=== PATIENT | male | born 1960 | race Caucasian/White ===

== ENCOUNTER 2017-08-01 09:49 | Inpatient (IN) | payer OTHER ==
[~2017-08-01] VITALS: Ht 172.7 cm; Wt 70.3 kg
[2017-08-01] MEDS ORDERED: DILTIAZEM HCL 5 MG/ML 5 ML VIAL IV STA (10:18)
[2017-08-01] MEDS ORDERED: SODIUM CHLORIDE 0.9% 500ML 500 ML IV STA (10:18)
--- NOTE | 2017-08-01 10:18 | EMERGENCY ROOM VISIT NOTE ---
History Report prepared by Destiny: Nicolas Armstrong Under the Supervision of: Dr. Janneth Jones M.D. First contact with patient: 10:05 Chief Complaint: SHORTNESS OF BREATH Stated Complaint: SOB, CHEST PAIN History of Present Illness The patient is a 56 year old male with atypical cystic fibrosis who presents to the Emergency Room with complaints of worsening respiratory problems over the past few days. Per the patient's significant other, the patient had influenza a month ago, then had sinusitis, and wound up with pneumonia. The patient was sent to the [facility] at this time. He has then started to get sick again the past few days, and per the patient's significant other who is an EMT, the patient seems to be getting the pneumonia again with shortness of breath and some chest pain. The patient was seen at [facility] earlier today, and was then told to come here. Per the patient's significant other, the patient has had lung sounds in the lower left lobe. The patient notes no history of atrial fibrillation. He was recently on prednisone and azithromycin. Source of History: patient, spouse/significant other Onset: The past few days Position: other (global - respiratory problems) Symptom Intensity: sent here from [facility] Quality: other (recently had pneumonia) Timing: worsening Associated Symptoms: + chest pain, + SOB Note: No other associated symptoms noted. Review of Systems See HPI for pertinent positives & negatives. A total of 10 systems reviewed and were otherwise negative. Past Medical & Surgical Medical Problems: (1) Asthma (2) Cystic fibrosis (3) Kidney disease (4) PNA (pneumonia) Family History Cancer Diabetes mellitus Gallbladder disease Heart disease Lung disease Social History Smoking Status: Current Every Day Smoker Alcohol Use: none Marital Status: in relationship Housing Status: lives with significant other Occupation Status: employed Current/Historical Medications Scheduled Buprenorphine Hcl-Naloxone Hcl (Suboxone 8-2 Mg), 8 MG TL BID Calcium (Calcium), 1 TAB PO DAILY Carisoprodol (Soma), 350 MG PO TID Cholecalciferol (Vitamin D3), 1 CAP PO DAILY Folic Acid (Folvite), 1 MG PO DAILY Omeprazole Magnesium (Prilosec Otc), 20 MG PO DAILY Potassium (Potassium), 1 TAB PO DAILY Allergies Coded Allergies: No Known Allergies (Unverified , 08/01/17) Physical Exam Vital Signs Date Time Temp Pulse Resp B/P (MAP) Pulse Ox O2 Delivery O2 Flow Rate FiO2 08/01/17 11:57 107 18 134/98 95 Room Air 08/01/17 11:29 95 Nasal Cannula 3.0 08/01/17 11:05 75 20 133/87 95 Nasal Cannula 3.0 08/01/17 10:25 91 Room Air 08/01/17 10:15 153 08/01/17 09:51 36.9 130 28 147/110 98 Room Air Physical Exam Vital signs reviewed. General: Well-appearing 56 year old male, in no significant distress. HEENT: No scleral icterus, PERRLA, neck supple. Atraumatic. Cardiovascular: Tachycardic and irregular, no extra sounds. Pulmonary: Fine crackles throughout all lung ramirez. Normal WOB Abdomen: Soft, nontender, nondistended, positive bowel sounds. Musculoskeletal: Atraumatic, no peripheral edema. Neurologic: Patient awake alert and oriented x 3, full strength in all 4 extremities. Cranial nerves 2 through 12 grossly intact. Skin: Warm, dry, no rash Medical Decision & Procedures ER Provider Diagnostic Interpretation: X-ray results as stated below per interpretation by me and the radiologist: CHEST ONE VIEW PORTABLE CLINICAL HISTORY: atrial fib dyspnea COMPARISON STUDY: None. FINDINGS: Mild cardia megaly. Moderate myocardial calcification. Components of congestive failure versus pulmonary edema. Diaphragms smooth. Slight blunting of the lateral calcific angles. IMPRESSION: Findings consistent with interstitial congestive failure versus early pulmonary edema. The above report was generated using voice recognition software. It may contain grammatical, syntax or spelling errors. Electronically signed by: Andrei Locke M.D. 08/01/2017 10:45 AM Dictated Date/Time: 08/01/2017 10:39 AM Laboratory Results Test 08/01/17 10:25 08/01/17 10:30 08/01/17 10:35 08/01/17 11:00 Immature Granulocyte % (Auto) 0.1 % White Blood Count 8.80 K/uL (4.8-10.8) Red Blood Count 4.04 M/uL (4.7-6.1) Hemoglobin 11.9 g/dL (14.0-18.0) Hematocrit 35.1 % (42-52) Mean Corpuscular Volume 86.9 fL (80-100) Mean Corpuscular Hemoglobin 29.5 pg (25-34) Mean Corpuscular Hemoglobin Concent 33.9 g/dl (32-36) Platelet Count 165 K/uL (130-400) Mean Platelet Volume 11.2 fL (7.4-10.4) Neutrophils (%) (Auto) 79.5 % Lymphocytes (%) (Auto) 11.8 % Monocytes (%) (Auto) 7.6 % Eosinophils (%) (Auto) 0.8 % Basophils (%) (Auto) 0.2 % Neutrophils # (Auto) 6.99 K/uL (1.4-6.5) Lymphocytes # (Auto) 1.04 K/uL (1.2-3.4) Monocytes # (Auto) 0.67 K/uL (0.11-0.59) Eosinophils # (Auto) 0.07 K/uL (0-0.5) Basophils # (Auto) 0.02 K/uL (0-0.2) Immature Granulocyte # (Auto) 0.01 K/uL (0.00-0.02) Estimated Average Glucose 177 mg/dl Hemoglobin A1c 7.8 % (4.5-5.6) Total Bilirubin 0.7 mg/dl (0.2-1) Direct Bilirubin 0.3 mg/dl (0-0.2) Aspartate Amino Transf (AST/SGOT) 29 U/L (15-37) Alanine Aminotransferase (ALT/SGPT) 32 U/L (12-78) Alkaline Phosphatase 203 U/L (45-117) Total Creatine Kinase 71 U/L (39-308) Creatine Kinase MB 4.1 ng/ml (0.5-3.6) Creatine Kinase MB Ratio 5.8 (0-3.0) Total Protein 7.1 gm/dl (6.4-8.2) Albumin 2.9 gm/dl (3.4-5.0) Thyroid Stimulating Hormone (TSH) 1.620 uIu/ml (0.300-4.500) Bedside Troponin I 0.030 ng/ml (0-0.045) Bedside Lactic Acid Venous 1.02 mmol/L (0.90-1.70) Urine Color YELLOW Urine Appearance CLEAR (CLEAR) Urine pH 5.0 (4.5-7.5) Urine Specific Wolbach 1.019 (1.000-1.030) Urine Protein NEG (NEG) Urine Glucose (UA) NEG (NEG) Urine Ketones NEG (NEG) Urine Occult Blood NEG (NEG) Urine Nitrite NEG (NEG) Urine Bilirubin NEG (NEG) Urine Urobilinogen NEG (NEG) Urine Leukocyte Esterase NEG (NEG) Laboratory results per my review. Medications Administered Medications (Trade) Dose Ordered Sig/Reny Route Start Time Stop Time Status Last Admin Dose Admin Sodium Chloride 500 ml @ 999 mls/hr Q31M STAT IV 08/01/17 10:18 08/01/17 10:54 DC 08/01/17 10:28 999 MLS/HR Diltiazem HCl (Cardizem Inj) 20 mg NOW STAT IV 08/01/17 10:18 08/01/17 10:23 DC 08/01/17 10:28 20 MG Furosemide (Lasix Inj) 40 mg NOW STAT IV 08/01/17 10:53 08/01/17 10:54 DC 08/01/17 11:05 40 MG Diltiazem HCl 125 mg/Dextrose 125 ml @ 0 mls/hr Q0M PRN IV 08/01/17 12:15 08/31/17 12:14 08/02/17 09:01 5 MLS/HR Diltiazem HCl (Cardizem Inj) 10 mg TODAY@1230 IV 08/01/17 12:30 08/01/17 12:31 DC 08/01/17 12:28 10 MG ECG Indication: SOB/dyspnea Rate (beats per minute): 70 Rhythm: atrial flutter (with variable block) Findings: no acute ischemic change, no ectopy ED Course 1010: Past medical records reviewed. The patient was evaluated in room B11B. A complete history and physical examination was performed. 1018: Ordered Cardizem Inj 20 mg IV, NSS 500 ml @ 999 mls/hr IV. 1053: Ordered Lasix Inj 40 mg IV. 1154: I reviewed the patient's case with Dr. Hunt - [facility]. He will evaluate the patient for further management. 1156: Upon reevaluation, the patient is resting comfortably. I discussed laboratory and radiographic results with him and his significant other. They verbalized agreement of the treatment plan. The patient will be evaluated for further management and care. Medical Decision Differential diagnosis: Etiologies such as cardiac arrhythmia, infections, reactive airway disease, pneumonia, pneumothorax, COPD, CHF, cardiac ischemia, pulmonary embolism, musculoskeletal, gastrointestinal, as well as others were entertained. This patient was evaluated and appeared to be in no significant distress. IV access was obtained and laboratory work was drawn. The patient was placed on parts counter representative and found to be in a rapid atrial fib/flutter. Patient was given 20 mg of IV Cardizem after a bolus of normal saline solution. Chest x- ray then reveals a pulmonary vascular congestion. Patient was administered Lasix 40 mg IV. The Cardizem did result in good rate control however he remained in an atrial flutter. Patient's case was discussed with the hospitalist service. They will evaluate the patient for admission and further management. Medication Reconcilliation Current Medication List: was personally reviewed by me Blood Pressure Screening Patient's blood pressure: Elevated blood pressure Referred to auto body [facility]. Consults Time Called: 1150 Consulting Physician: Dr. Marilee FREY auto body man Returned Call: 1154 I reviewed the patient's case with Dr. Marilee FERY auto body man. He will evaluate the patient for further management. Impression Primary Impression: Atrial flutter with rapid ventricular response Additional Impression: Pulmonary vascular congestion Scribe Attestation The scribe's documentation has been prepared under my direction and personally reviewed by me in its entirety. I confirm that the note above accurately reflects all work, treatment, procedures, and medical decision making performed by me. Departure Information Dispostion Being Evaluated By Hospitalist Referrals No Doctor, Assigned (PCP) Patient Instructions My [facility] Problem Qualifiers
[2017-08-01] MEDS ORDERED: CHOL1000 PO (10:26)
[2017-08-01] MEDS ORDERED: POTA99TA PO (10:26)
[2017-08-01] MEDS ORDERED: OMEP20TA14 PO (10:26)
[2017-08-01] MEDS ORDERED: CARI350T28 PO (10:26)
[2017-08-01] MEDS ORDERED: FOLI1TAB8 PO (10:26)
[2017-08-01] MEDS ORDERED: CALC500T83 PO (10:26)
[2017-08-01 10:46] LABS: BASO % 0.2 %; BASO ABS # 0.02 K/uL (0-0.2); EOS % 0.8 %; EOS ABS # 0.07 K/uL (0-0.5); HEMATOCRIT 35.1 % (42-52); HEMOGLOBIN 11.9 g/dL (14.0-18.0); IG# 0.01 K/uL (0.00-0.02); LYMPH % 11.8 %; LYMPH ABS # 1.04 K/uL (1.2-3.4); MEAN CELL VOLUME 86.9 fL (80-100); MEAN CORPUSCULAR HEMOGLOBIN 29.5 pg (25-34); MEAN CORPUSCULAR HGB CONC 33.9 g/dl (32-36); MEAN PLATELET VOLUME 11.2 fL (7.4-10.4); MONO % 7.6 %; MONO ABS # 0.67 K/uL (0.11-0.59); NEUT % 79.5 %; NEUT ABS # 6.99 K/uL (1.4-6.5); PLATELET COUNT 165 K/uL (130-400); RED CELL DISTRIBUTION WIDTH CV 13.3 % (11.5-14.5); RED CELL DISTRIBUTION WIDTH SD 42.7 fL (36.4-46.3)
--- NOTE | 2017-08-01 10:46 | DIAGNOSTIC IMAGING REPORT ---
CHEST ONE VIEW PORTABLE CLINICAL HISTORY: atrial fib dyspnea COMPARISON STUDY: None. FINDINGS: Mild cardia megaly. Moderate myocardial calcification. Components of congestive failure versus pulmonary edema. Diaphragms smooth. Slight blunting of the lateral calcific angles. IMPRESSION: Findings consistent with interstitial congestive failure versus early pulmonary edema. The above report was generated using voice recognition software. It may contain grammatical, syntax or spelling errors. Electronically signed by: Andrei Locke M.D. 08/01/2017 10:45 AM Dictated Date/Time: 08/01/2017 10:39 AM
[2017-08-01] MEDS ORDERED: FUROSEMIDE 40 MG/4 ML VIAL IV STA (10:53)
[2017-08-01 11:04] LABS: ALBUMIN 2.9 gm/dl (3.4-5.0); CALCIUM 8.9 mg/dl (8.5-10.1); CREATININE 0.72 mg/dl (0.60-1.40); POTASSIUM 4.2 mmol/L (3.5-5.1)
[2017-08-01 11:09] LABS: CKMB 4.1 ng/ml (0.5-3.6); TOTAL PROTEIN 7.1 gm/dl (6.4-8.2)
[2017-08-01] MEDS ORDERED: BUPR1SUB23 TL (11:20)
[2017-08-01 11:29] VITALS: O2SAT 95; BMI 24.2
[2017-08-01] MEDS ORDERED: DILTIAZEM BOLUS / DRIP IV STA (12:01)
--- NOTE | 2017-08-01 12:21 | History and Physical ---
History & Physical Date & Time of Service: Aug 01, 2017 at 11:58 Chief Complaint: Sob, Chest Pain Primary Care Physician: No Doctor, Assigned History of Present Illness Source: patient 56yo male with history of numerous episodes of pancreatitis - due to cystic fibrosis? - who presents with worsening dyspnea starting Tuesday. He has been sick for about 1 month - initially with influenza and sinusitis, then about 2 weeks ago was diagnosed at [facility] with pneumonia. He was treated with prednisone and zithromax. His significant other is an EMT and she listed to his heart/lungs over the weekend and noted his pulse was fast. His dyspnea and cough along with sputum worsened this weekend. He has had fever over the last few days - highest about 101. Treated with tylenol/motrin. Today he decided to come to [facility] due to the severity of his shortness of breath and weakness. His daughter from cystic fibrosis and he had DNA testing for such and was positive for the CF gene. However, he had normal development as a child and normal lung function as well. He has had very few episodes of bronchitis over the years. No prior h/o a. fib or flutter. Lastly, his significant other reports very mild confusion over the last 1-2 days coinciding with his fevers. Past Medical/Surgical History PMH: 1. recurrent pancreatitis 2. rheumatoid arthritis 3. 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 no asthma, COPD, or heart disease 5. recent pneumonia 6. no recurrent sinusitis 7. HepC; no cirrhosis 8. ?diabetes 9. suboxone for chronic low pain PSH: 1. partial pancreatectomy 2. prior pancreatic stents 3. splenectomy 4. cholecystectomy 5. lumbar spine surgery x 2 Family History Cancer Diabetes mellitus Gallbladder disease Heart disease Lung disease mother, father - T2DM PGF - brain tumor or metastatic cancer MGF - pancreatic cancer MGM - heart attacks daughter - cystic fibrosis - age 22 brother - cystic fibrosis carrier Social History Smoking Status: Current Every Day Smoker (1 ppd, now less; started teenage years) Alcohol Use: none Drug Use: marijuana (in the past) Marital Status: in relationship Housing status: other (lives in [place] with significant other ) Occupational Status: employed (works with the [employer] ) Allergies Coded Allergies: No Known Allergies (Unverified , 08/01/17) Home Medications Scheduled Buprenorphine Hcl-Naloxone Hcl (Suboxone 8-2 Mg), 8 MG TL BID Calcium (Calcium), 1 TAB PO DAILY Carisoprodol (Soma), 350 MG PO TID Cholecalciferol (Vitamin D3), 1 CAP PO DAILY Folic Acid (Folvite), 1 MG PO DAILY Omeprazole Magnesium (Prilosec Otc), 20 MG PO DAILY Potassium (Potassium), 1 TAB PO DAILY Review of Systems Constitutional: + fever, + chills, + weight loss (25 pounds - 6 months ) Eyes: No worsening of vision ENT: No nasal symptoms, No sore throat, No trouble swallowing Respiratory: + cough, + sputum, + wheezing, + shortness of breath, + dyspnea on exertion, No hemoptysis Cardiovascular: + orthopnea, + edema, No chest pain Abdomen: + constipation, No pain, No nausea, No diarrhea, No GI bleeding Genitourinary - Male: + hematuria (?), + dysuria (STARTED IN ER) Neurologic: + numbness/tingling (hands/feet) Psychiatric: + anxiety Endocrine: No fatigue Hematologic / Lymphatic: No abnormal bleeding/bruising Integumentary: No rash Physical Exam Vital Signs Date Time Temp Pulse Resp B/P (MAP) Pulse Ox O2 Delivery O2 Flow Rate FiO2 08/01/17 11:29 95 Nasal Cannula 3.0 08/01/17 11:05 75 20 133/87 95 Nasal Cannula 3.0 08/01/17 10:25 91 Room Air 08/01/17 10:15 153 08/01/17 09:51 36.9 130 28 147/110 98 Room Air General Appearance: no apparent distress (BUT APPEARS ILL, NONTOXIC HOWEVER) Head: normocephalic, atraumatic Eyes: PERRL ENT: hearing grossly normal, TMs normal, pharynx normal Neck: supple, no adenopathy, thyroid normal, + JVD (mild) Respiratory/Chest: no respiratory distress, no accessory muscle use, + rales ( scattered bases) Cardiovascular: + pertinent finding (irregular, tachy, s1, s2, no murmur) Abdomen/GI: normal bowel sounds, soft, no organomegaly, + tenderness ( suprapubic region) Back: normal inspection Extremities/Musculoskelatal: no pedal edema, + pertinent finding (fingernail clubbing present ) Neurologic/Psych: no motor/sensory deficits, alert, normal reflexes, oriented x 3 Skin: + pertinent finding (occasional erythematous papule on back ) Lymphatic: no adenopathy (cervical ) Diagnostics Laboratory Results Results Past 24 Hours Test 08/01/17 10:25 08/01/17 10:30 08/01/17 10:35 Range/Units White Blood Count 8.80 4.8-10.8 K/uL Red Blood Count 4.04 4.7-6.1 M/uL Hemoglobin 11.9 14.0-18.0 g/dL Hematocrit 35.1 42-52 % Mean Corpuscular Volume 86.9 80-100 fL Mean Corpuscular Hemoglobin 29.5 25-34 pg Mean Corpuscular Hemoglobin Concent 33.9 32-36 g/dl Platelet Count 165 130-400 K/uL Mean Platelet Volume 11.2 7.4-10.4 fL Neutrophils (%) (Auto) 79.5 % Lymphocytes (%) (Auto) 11.8 % Monocytes (%) (Auto) 7.6 % Eosinophils (%) (Auto) 0.8 % Basophils (%) (Auto) 0.2 % Neutrophils # (Auto) 6.99 1.4-6.5 K/uL Lymphocytes # (Auto) 1.04 1.2-3.4 K/uL Monocytes # (Auto) 0.67 0.11-0.59 K/uL Eosinophils # (Auto) 0.07 0-0.5 K/uL Basophils # (Auto) 0.02 0-0.2 K/uL RDW Standard Deviation 42.7 36.4-46.3 fL RDW Coefficient of Variation 13.3 11.5-14.5 % Immature Granulocyte % (Auto) 0.1 % Immature Granulocyte # (Auto) 0.01 0.00-0.02 K/uL Sodium Level 136 136-145 mmol/L Potassium Level 4.2 3.5-5.1 mmol/L Chloride Level 101 98-107 mmol/L Carbon Dioxide Level 26 21-32 mmol/L Anion Gap 9.0 3-11 mmol/L Blood Urea Nitrogen 16 7-18 mg/dl Creatinine 0.72 0.60-1.40 mg/dl Est Creatinine Clear Calc Drug Dose 110.8 ml/min Estimated GFR () 120.9 Estimated GFR (Non- 104.3 BUN/Creatinine Ratio 22.7 10-20 Random Glucose 178 70-99 mg/dl Calcium Level 8.9 8.5-10.1 mg/dl Magnesium Level 1.8 1.8-2.4 mg/dl Total Bilirubin 0.7 0.2-1 mg/dl Direct Bilirubin 0.3 0-0.2 mg/dl Aspartate Amino Transf (AST/SGOT) 29 15-37 U/L Alanine Aminotransferase (ALT/SGPT) 32 12-78 U/L Alkaline Phosphatase 203 45-117 U/L Total Creatine Kinase 71 39-308 U/L Creatine Kinase MB 4.1 0.5-3.6 ng/ml Creatine Kinase MB Ratio 5.8 0-3.0 Total Protein 7.1 6.4-8.2 gm/dl Albumin 2.9 3.4-5.0 gm/dl Bedside Troponin I 0.030 0-0.045 ng/ml Bedside Lactic Acid Venous 1.02 0.90-1.70 mmol/L Microbiology Results 08/01/17 Blood Culture, Received Pending 08/01/17 Blood Culture, Received Pending Diagnostic Radiology cxr - IMPRESSION: Findings consistent with interstitial congestive failure versus early pulmonary edema. EKG EKG - a. flutter with RVR, variable block, no ST segment changes Impression Assessment and Plan 56yo male with history of chronic HepC, chronic low back pain requiring use of suboxone, recurrent pancreatitis s/p partial pancreatectomy/splenectomy/ cholecystectomy, and - at the minimum - carrier of a cystic fibrosis gene ( daughter from CF at age 22) who presents with worsening cough/dyspnea/fever /altered mental status for 2-3 days. At presentation today found to be in rapid a. flutter and also possible mild acute CHF. 1. a. flutter with RVR - he responded decently to diltiazem IV in the ER. Thus, will place on diltiazem drip and titrate. Admit to telemetry. Will also place him on systemic heparin for now. I have spoken with Dr. Arellano from cardiology who will consult. Check TSH. Check echo. Serial troponins. K and mag were both normal. 2. possible acute CHF - he received IV lasix in the ER and is already diuresing from such. Check echo. Follow UOP & clinical response. 3. fever, altered mental status, cough/dyspnea - I am concerned he could have the beginning of sepsis. I am unclear if he has a developing pneumonia that we can't see on cxr today vs influenza vs some other source of infection (bacteremia given his post- splenectomy state, UTI, etc). Blood cx's have been drawn. Check rapid flu. Check u/a and urine cx. Reasonable to place on empiric rocephin 2 grams IV daily while awaiting cultures & test results. Consider repeat cxr in AM. 4. CF carrier vs cystic fibrosis - the patient denies any history of malabsorption, no history of recurrent sinusitis or pneumonia or chronic lung disease; he only had recurrent pancreatitis over the years. He had normal development as a child/teenager. I am confused by his clinical history. He is at the very least a CF gene carrier, but perhaps with incomplete disease penetrance hence the pancreatitis? Would defer this to pulmonary/GI at [place] where he had work-up in the past. Could consider checking nutritional labs (vitamin D, A, etc) to see if he is malabsorbing chronically. 5. chronic pain syndrome - continue suboxone 8mg BID per outpatient dosing. 6. DVT proph - he will be on systemic heparin for now. 7. abnormal LFTs - due to chronic HepC? Repeat in 48 hours for stability. 8. hyperglycemia - significant other reports she has checked random BSG's on him at home and they have been >200. His glucose is high today as well. Given his pancreas surgery in the past he certainly could be diabetic. Check hemoglobin a1c and ac/hs fingersticks. Low threshold to treat for T1DM. 9. mild anemia - consider iron studies, b12, folate while here. 10. FEN - lytes are stable; hep lock IV; AHA diet but if any signs of DM then place on T1DM diet as well. 11. metabolic encephalopathy - likely due to infectious process. Follow; supportive care. Could consider checking ammonia level as well given his h/o HepC. Level of Care Telemetry Advanced Directives Existing Living Will: No Existing Power of Mottle Lay Up Operator: No Resuscitation Status FULL RESUSCITATION VTE Prophylaxis Risk Level: Moderate Given or contraindicated: Other Anticoagulation Note total time about 70 minutes
[2017-08-01] MEDS: DILTIAZEM HCL INJ 125 MG in DEXTROSE 5% 100ML IV PRN ×2 (12:23→12:57)
[2017-08-01] MEDS ORDERED: DILTIAZEM HCL 5 MG/ML 5 ML VIAL BOLUS/OMNI IV SCH (12:30)
[2017-08-01] MEDS ORDERED: ONDANSETRON INJ 2 MG/ML 2 ML VIAL IV PRN (12:45)
[2017-08-01] MEDS ORDERED: ALUMINUM/MAGNESIUM/SIMETH (MAALOX MAX) 30 ML UDC PO PRN (12:45)
[2017-08-01] MEDS ORDERED: MAGNESIUM HYDROXIDE SUSP 30 ML UDC PO PRN (12:45)
[2017-08-01] MEDS ORDERED: ALBUT/IPRATROP 3MG/0.5MG NEB 3 ML VIAL INH PRN (13:00)
[2017-08-01 13:27] LABS: HEMOGLOBIN A1C 7.8 % (4.5-5.6)
[2017-08-01 13:36] LABS: INFLUENZA B ANTIGEN Neg for Influ B (NEG)
[2017-08-01] MEDS ORDERED: HEPARIN 25000 UNIT/500 ML D5W ONE (13:54)
[2017-08-01] MEDS ORDERED: GLUCOSE 10 TABS/TUBE PO PRN (14:15)
[2017-08-01] MEDS ORDERED: GLUCAGON FOR INJ 1 MG VIAL SQ PRN (14:15)
[2017-08-01] MEDS ORDERED: DEXTROSE 50% 50 ML SYR IV PRN (14:15)
[2017-08-01] MEDS ORDERED: GLUCOSE 40% GEL 15 GM TUBE PO PRN (14:15)
[2017-08-01 15:00] VITALS: BP 148/82; PULSE 88; TEMP 37.6; O2SAT 93
[2017-08-01] MEDS: GUAIFENESIN 600 MG TABCR PO SCH ×2 (15:00→20:10)
[2017-08-01] MEDS ORDERED: LANTUS PER UNIT CHARGE SQ ONE (15:15)
[2017-08-01] MEDS: CEFTRIAXONE SOD INJ 2,000 MG in DEXTROSE 5% 50ML 50 ML IV SCH (15:22)
[2017-08-01] MEDS: BUPRENORPHINE/NALOXONE 8/2 MG TAB PO SCH (15:25)
[2017-08-01] MEDS: INSULIN ASPART 100 UNITS/ML 3 ML PEN SC SCH ×2 (15:26→20:10)
[2017-08-01] MEDS: NICOTINE 7 MG/24 HR TDSY TD SCH (15:26)
[2017-08-01] MEDS: ACETAMINOPHEN 325 MG TAB PO PRN (15:29)
[2017-08-01] MEDS: HEPARIN 25,000 UNIT/500ML D5W 500 ML IV PRN (15:30)
--- NOTE | 2017-08-01 17:08 | Cardiology Consultation ---
Cardiology Consultation Date of Consultation: Aug 01, 2017. Requesting Physician: Dr. Grant Reason for Consultation: AF Pt evaluation today including: conversation w/ patient, physical exam, lab review, review of studies, review of inpatient medication list, conversation w/ attending History of Present Illness This is a very pleasant 58-year-old gentleman who has a possible history of cystic fibrosis although he has not had pulmonary difficulty with that to my knowledge, however he did have pancreatitis. He presents with several days of dyspnea on exertion and some chest discomfort. However he has not felt well for about one month. He tells me that he went to an urgent care center and also to the [place] [facility] within the last month but I don't have those records and he was not told he had an atrial arrhythmia. Several days ago he was noted to have a rapid pulse by a friend of his who is an EMT and his symptoms of cough and sputum production worsened and he was noted to have a fever and therefore he came to the emergency room. In the emergency room he was noted to have atrial flutter with a very rapid ventricular response, with emergency room treatment ( IV diltiazem) the rate slowed considerably. He tells me that over the last several months he may have been more fatigued than usual, but not enough to seek attention. Over the summer he thinks that he had a normal exercise ability although he is not terribly active due to long- standing back difficulty. The chest discomfort that he describes was brief, was a pressure sensation and sounded as though was associated with shortness of breath during the night before admission. It sounds as though was not exertional. At the time of my evaluation he felt better, he was still a little bit short of breath but he was laying in bed and did not appear short of breath. He had no further chest discomfort after coming into the emergency room and having his rate controlled. Past Medical/Surgical History (1) Cystic fibrosis (2) Kidney disease (3) Asthma Family History Cancer Diabetes mellitus Gallbladder disease Heart disease Lung disease Social History Smoking Status: Current Every Day Smoker (1 ppd, now less; started teenage years) History of Alcohol Use: No Review of Systems Constitutional: No fever, No weight loss, No weakness Respiratory: + see HPI, + cough, + shortness of breath, + dyspnea on exertion Cardiac: + see HPI, + chest pain, No orthopnea, No PND, No edema, No palpitations Abdomen: No pain, No nausea, No vomiting, No diarrhea, No GI bleeding Male : No urinary frequency, No nocturia more than once/night, No slowing stream, No sexual dysfunction Neurologic: No paralysis, No weakness, No numbness/tingling, No balance problems Heme: No abnormal bleeding/bruising, No clotting problems Endo: No fatigue Skin: No problem reported All Other Systems: Reviewed and Negative Allergies Coded Allergies: No Known Allergies (Unverified , 08/01/17) Medications Current Inpatient Medications Medications (Trade) Dose Ordered Sig/Reny Route Start Time Stop Time Status Last Admin Dose Admin Diltiazem HCl 125 mg/Dextrose 125 ml @ 0 mls/hr Q0M PRN IV 08/01/17 12:15 08/31/17 12:14 08/01/17 12:57 10 MLS/HR Acetaminophen (Tylenol Tab) 650 mg Q4H PRN PO 08/01/17 12:45 08/31/17 12:44 08/01/17 15:29 650 MG Al Hydrox/Mg Hydrox/Simethicone (Maalox Max Susp) 15 ml Q4H PRN PO 08/01/17 12:45 08/31/17 12:44 Magnesium Hydroxide (Milk Of Magnesia Susp) 30 ml Q12H PRN PO 08/01/17 12:45 08/31/17 12:44 Ondansetron HCl (Zofran Inj) 4 mg Q6H PRN IV 08/01/17 12:45 08/31/17 12:44 Carisoprodol (Soma Tab) 350 mg TID PO 08/01/17 21:00 08/31/17 20:59 Folic Acid (Folvite Tab) 1 mg DAILY PO 08/02/17 09:00 09/01/17 08:59 Cholecalciferol (Vitamin D Tab) 2,000 inter.unit QAM PO 08/02/17 09:00 09/01/17 08:59 Pantoprazole Sodium (Protonix Tab) 40 mg QAM PO 08/02/17 09:00 09/01/17 08:59 Nicotine (Nicoderm Cq 7 Mg Patch) 1 patch QAM TD 08/01/17 15:00 08/31/17 14:59 08/01/17 15:26 1 PATCH Miscellaneous (Remove Nicoderm Patch) 1 ea HS N/A 08/01/17 21:00 08/31/17 20:59 Insulin Aspart (novoLOG ASPART) SLIDING SCALE G... ACHS SC 08/01/17 16:00 08/31/17 15:59 Albuterol/ Ipratropium (Duoneb) 3 ml Q4H PRN INH 08/01/17 13:00 08/31/17 12:59 Guaifenesin (Mucinex Contr Rel Tab) 1,200 mg Q12 PO 08/01/17 15:00 08/31/17 14:59 Ceftriaxone Sodium 2000 mg/ Dextrose 70 ml @ 100 mls/hr Q24H IV 08/01/17 15:00 08/03/17 14:59 08/01/17 15:22 100 MLS/HR Glucose (Glucose 40% Gel) 15-30 GRAMS 15 GRAMS... UD PRN PO 08/01/17 14:15 08/31/17 14:14 Glucose (Glucose Chew Tab) 4-8 Tablets 4 Tabl... UD PRN PO 08/01/17 14:15 08/31/17 14:14 Dextrose (Dextrose 50% 50ML Syringe) 25-50ML OF 50% DW IV FOR... UD PRN IV 08/01/17 14:15 08/31/17 14:14 Glucagon (Glucagon Inj) 1 mg UD PRN SQ 08/01/17 14:15 08/31/17 14:14 Buprenorphine/ Naloxone (Suboxone 8/2MG Tab) 1 tab BID@0600,1500 PO 08/01/17 15:00 08/31/17 14:59 08/01/17 15:25 1 TAB Heparin Sodium/ Dextrose 500 ml @ 25 mls/hr Q20H PRN IV 08/01/17 15:00 08/31/17 14:59 08/01/17 15:30 25 MLS/HR Physical Exam Vital Signs Past 12 Hours Date Time Temp Pulse Resp B/P (MAP) Pulse Ox O2 Delivery O2 Flow Rate FiO2 08/01/17 14:02 75 18 140/67 94 Nasal Cannula 2.0 08/01/17 12:58 88 16 141/92 94 Nasal Cannula 2.0 08/01/17 12:56 94 08/01/17 11:57 107 18 134/98 95 Room Air 08/01/17 11:29 95 Nasal Cannula 3.0 08/01/17 11:05 75 20 133/87 95 Nasal Cannula 3.0 08/01/17 10:25 91 Room Air 08/01/17 10:15 153 08/01/17 09:51 36.9 130 28 147/110 98 Room Air Constitutional: General Apperance: heathly-appearing Level of Distress: NAD Psychiatric: Mental Status: active & alert Head: normocephalic Eyes: EOM: EOMI ENMT: normal ENT inspection, hearing grossly normal Neck: supple, no masses Lungs: Respiratory effort: no dyspnea, good air movement Auscultation: expiratory wheezing, rales/crackles on the left, rales/ crackles on the right Cardiovascular: Heart Auscultation: no rubs, no gallops, II/ WSM, irregular rate rhythm Peripheral Pulses: Bruits: none appreciated Abdomen: Bowel Sounds: normal Inspection & Palpation: soft, no tenderness, guarding & rebound, no masses Musculoskeletal: normal strength (5/5 throughout) Extremities: no edema Neurologic: Cranial Nerves: grossly intact Sensation: grossly intact Data Laboratory Results: Last 24 Hours Test 08/01/17 10:25 08/01/17 10:30 08/01/17 10:35 08/01/17 11:00 White Blood Count 8.80 K/uL Red Blood Count 4.04 M/uL Hemoglobin 11.9 g/dL Hematocrit 35.1 % Mean Corpuscular Volume 86.9 fL Mean Corpuscular Hemoglobin 29.5 pg Mean Corpuscular Hemoglobin Concent 33.9 g/dl Platelet Count 165 K/uL Mean Platelet Volume 11.2 fL Neutrophils (%) (Auto) 79.5 % Lymphocytes (%) (Auto) 11.8 % Monocytes (%) (Auto) 7.6 % Eosinophils (%) (Auto) 0.8 % Basophils (%) (Auto) 0.2 % Neutrophils # (Auto) 6.99 K/uL Lymphocytes # (Auto) 1.04 K/uL Monocytes # (Auto) 0.67 K/uL Eosinophils # (Auto) 0.07 K/uL Basophils # (Auto) 0.02 K/uL RDW Standard Deviation 42.7 fL RDW Coefficient of Variation 13.3 % Immature Granulocyte % (Auto) 0.1 % Immature Granulocyte # (Auto) 0.01 K/uL Sodium Level 136 mmol/L Potassium Level 4.2 mmol/L Chloride Level 101 mmol/L Carbon Dioxide Level 26 mmol/L Anion Gap 9.0 mmol/L Blood Urea Nitrogen 16 mg/dl Creatinine 0.72 mg/dl Est Creatinine Clear Calc Drug Dose 110.8 ml/min Estimated GFR () 120.9 Estimated GFR (Non- 104.3 BUN/Creatinine Ratio 22.7 Random Glucose 178 mg/dl Estimated Average Glucose 177 mg/dl Hemoglobin A1c 7.8 % Calcium Level 8.9 mg/dl Magnesium Level 1.8 mg/dl Total Bilirubin 0.7 mg/dl Direct Bilirubin 0.3 mg/dl Aspartate Amino Transf (AST/SGOT) 29 U/L Alanine Aminotransferase (ALT/SGPT) 32 U/L Alkaline Phosphatase 203 U/L Total Creatine Kinase 71 U/L Creatine Kinase MB 4.1 ng/ml Creatine Kinase MB Ratio 5.8 Total Protein 7.1 gm/dl Albumin 2.9 gm/dl Thyroid Stimulating Hormone (TSH) 1.620 uIu/ml Bedside Troponin I 0.030 ng/ml Bedside Lactic Acid Venous 1.02 mmol/L Urine Color YELLOW Urine Appearance CLEAR Urine pH 5.0 Urine Specific Foster 1.019 Urine Protein NEG Urine Glucose (UA) NEG Urine Ketones NEG Urine Occult Blood NEG Urine Nitrite NEG Urine Bilirubin NEG Urine Urobilinogen NEG Urine Leukocyte Esterase NEG Test 08/01/17 12:50 08/01/17 15:02 Influenza Type A Antigen Neg for Influ A Influenza Type B Antigen Neg for Influ B Bedside Glucose 155 mg/dl Imaging: I reviewed his chest x-ray, he seems to have cardiomegaly and it looks like congestive heart failure as well. EKG: On arrival atrial fibrillation with a heart rate of 158 bpm, no acute changes, nonspecific ST-T abnormalities. A repeat study several hours later shows atrial flutter with a well-controlled heart rate of 70 bpm, no acute changes. Telemetry reviewed: Atrial fibrillation or flutter with rapid and then controlled heart rate His echocardiogram was done in the ER: This showed severe left ventricular dysfunction, with a dilated left atrium suggesting chronicity. There seemed to be some abnormalities in the endocardium in the left ventricle, we should repeat this is a limited study using contrast and I will arrange that over the next several days. Assessment & Plan #1. Shortness of breath: I suspect this is in part pulmonary but I believe he also has congestive heart failure. He received one dose of diuretics, I'm going to place him on twice a day Lasix. The cause of this is likely his atrial arrhythmia and his cardiomyopathy, which may also be related to each other. #2. Cardiomyopathy: He has a significant cardiomyopathy based on echocardiography. Based on symptoms this may be relatively recent, perhaps over the last several months. Prior to that he does not describe any difficulty with exertion but he could have long-standing left ventricular dysfunction and adapted to it, the left atrial size which suggests some degree of chronicity. At the moment I would use rate control (which we should switch to beta blockers tomorrow rather than calcium blockers for the cardiomyopathy), and I would follow cardiac enzymes. We may want to consider some form of evaluation for ischemia but that does not seem a likely cause of his cardiomyopathy at the moment. #3. Atrial fibrillation and flutter: I would control his rate with beta- blockade (he is on diltiazem now, I would continue that overnight switch to beta blockade tomorrow). We can add digoxin if necessary. He will need anticoagulation, I agree with heparin currently in case we have to perform invasive evaluation in the near future. This may be a cause of his cardiomyopathy or may be result of it. #4. Chest discomfort: Although chest discomfort in the setting of cardiomyopathy is worrisome and suggestive of ischemic heart disease, with negative cardiac enzymes and what appears to be diffuse hypokinesis and no ECG evidence of infarction I suspect this is nonischemic. If the enzymes are abnormal when trended or if symptoms persist we may need to consider stress testing or even cardiac catheterization. I did not arrange that as yet. Thank you for allowing me to participate in his care.
--- NOTE | 2017-08-01 17:26 | ECHOCARDIOGRAM REPORT ---
*NOTICE TO RECEIVING [employer] This information is strictly Confidential and protected under [place] law. [place] law prohibits you from making any further disclosure of this information unless further disclosure is expressly permitted by the written consent of the person to whom it pertains or is authorized by law. A general authorization for the release of medical or other information is not sufficient for this purpose. Hospital accepts no responsibility if the information is made available to any other person, INCLUDING THE PATIENT. Interpretation Summary * Name: SOM KIRBY Study Date: 08/01/2017 01:48 PM BP: 141/92 mmHg * Patient Location: C.EDB HR: 95 * : 1960 (M/d/yyyy) Gender: Male Height: 68 in * Age: 56 yrs Ethnicity: [place] Weight: 160 lb * Ordering Physician: Christian Hunt * Referring Physician: Self, Referred * Performed By: Rox Limon RCS * * Reason For Study: A-FLUTTER * BSA: 1.9 m2 * -- Conclusions -- * 1. Normal LV size, mild concentric LVH. * 2. Moderate to severe global LV dysfunction. LVEF 30-35%. * 3. Normal RV size and function. * 4. Moderate mitral regurgitation. * 5. Diastolic dysfunction. * 6. Apical echoes consistent with trabeculae are noted. Cannot rule out associated thrombi. * 7. Borderline PH. Est PASP 35-40 mmHg. Est CVP 8 mmHg. * 8. No prior studies for comparison. Procedure Details * A complete two-dimensional transthoracic echocardiogram was performed (2D, M-mode, Doppler and color flow Doppler). Left Ventricle * The left ventricle is grossly normal size. * Apical echoes consistent with trabeculae are noted. Cannot rule out associated thrombi. * There is mild concentric left ventricular hypertrophy. * Ejection Fraction = 30-35%. * There is moderate to severe global hypokinesis of the left ventricle. Right Ventricle * The right ventricle is grossly normal size. * The right ventricular systolic function is normal as assessed by tricuspid annular plane systolic excursion (TAPSE) (normal >1.5 cm). Atria * The left atrium is mildly dilated. * Right atrial size is normal. * No ASD detected; PFO is not assessed. Mitral Valve * There is no mitral valve stenosis. * There is moderate mitral regurgitation. Tricuspid Valve * There is no tricuspid stenosis. * There is trace tricuspid regurgitation. Aortic Valve * The aortic valve opens well. * Aortic valve sclerosis mild, without significant aortic valvular stenosis. * The aortic valve is trileaflet. * No hemodynamically significant valvular aortic stenosis. * There is no significant aortic regurgitation. Pulmonic Valve * There is no pulmonic valvular stenosis. * Mild pulmonic valvular regurgitation. Great Vessels * The aortic root and proximal ascending aorta are normal sized. Pericardium/Pleural * There is no pericardial effusion. Great Vessels * IVC <2.1, <50% change with respiration. Est RA 8 mmHg. Left Ventricular Diastolic Function * Diastolic dysfunction MMode 2D Measurements and Calculations IVSd 1.3 cm IVSs 1.7 cm LVIDd 4.1 cm LVIDs 3.6 cm LVPWd 1.4 cm LVPWs 1.5 cm IVS/LVPW 0.88 FS 13.9 % EDV(Teich) 76.4 ml ESV(Teich) 53.5 ml EF(Teich) 29.9 % EDV(cubed) 71.5 ml ESV(cubed) 45.7 ml EF(cubed) 36.1 % % IVS thick 32.7 % % LVPW thick 2.6 % LV mass(C)d 206.7 grams LV mass(C)dI 111.2 grams/m\S\2 LV mass(C)s 213.7 grams LV mass(C)sI 115.0 grams/m\S\2 SV(Teich) 22.8 ml SI(Teich) 12.3 ml/m\S\2 SV(cubed) 25.8 ml SI(cubed) 13.9 ml/m\S\2 Ao root diam 3.0 cm Ao root area 7.2 cm\S\2 ACS 2.1 cm LA dimension 4.1 cm LA/Ao 1.4 LVOT diam 1.9 cm LVOT area 2.7 cm\S\2 LVAd ap4 29.6 cm\S\2 LVLd ap4 7.7 cm EDV(MOD-sp4) 99.1 ml EDV(sp4-el) 96.3 ml LVAs ap4 28.2 cm\S\2 LVLs ap4 7.0 cm ESV(MOD-sp4) 90.4 ml ESV(sp4-el) 95.6 ml EF(MOD-sp4) 8.7 % EF(sp4-el) 0.73 % LVAd ap2 34.7 cm\S\2 LVLd ap2 7.9 cm EDV(MOD-sp2) 129.7 ml EDV(sp2-el) 129.6 ml LVAs ap2 24.7 cm\S\2 LVLs ap2 7.0 cm ESV(MOD-sp2) 73.4 ml ESV(sp2-el) 74.2 ml EF(MOD-sp2) 43.4 % EF(sp2-el) 42.7 % LVLd %diff 2.3 % EDV(MOD-bp) 115.2 ml LVLs %diff -1.18 % ESV(MOD-bp) 83.3 ml EF(MOD-bp) 27.6 % SV(MOD-sp4) 8.7 ml SI(MOD-sp4) 4.7 ml/m\S\2 SV(MOD-sp2) 56.3 ml SI(MOD-sp2) 30.3 ml/m\S\2 SV(MOD-bp) 31.8 ml SI(MOD-bp) 17.1 ml/m\S\2 SV(sp4-el) 0.70 ml SI(sp4-el) 0.38 ml/m\S\2 SV(sp2-el) 55.4 ml SI(sp2-el) 29.8 ml/m\S\2 Doppler Measurements and Calculations Ao V2 max 170.6 cm/sec Ao max PG 11.6 mmHg Ao max PG (full) 8.1 mmHg RADHA(V,A) 1.5 cm\S\2 RADHA(V,D) 1.5 cm\S\2 LV V1 max PG 3.6 mmHg LV V1 max 94.4 cm/sec MR max hong 481.6 cm/sec MR max PG 92.8 mmHg PA V2 max 131.8 cm/sec PA max PG 7.0 mmHg PI max hong 181.3 cm/sec PI max PG 13.1 mmHg PI dec slope 112.2 cm/sec\S\2 PI P1/2t 473.3 msec TR max hong 283.7 cm/sec
[2017-08-01 19:42] VITALS: BP 119/73; PULSE 82; TEMP 37.1; O2SAT 95
[2017-08-01] MEDS: CARISOPRODOL 350 MG TAB PO SCH (20:09)
[2017-08-01 20:22] LABS: PTT PATIENT 33.6 SECONDS (21.0-31.0)
[2017-08-01] MEDS ORDERED: BUPRENORPHINE/NALOXONE 8/2 MG TAB PO SCH (21:00)
[2017-08-01] MEDS ORDERED: HEPARIN IV BOLUS 6,000 UNIT in SYRINGE 0 ML IV ONE (21:00)
[2017-08-01] MEDS ORDERED: AZITHROMYCIN IV 500 MG in DEXTROSE 5% 250ML 250 ML IV ONE (21:00)
--- NOTE | 2017-08-01 22:23 | Progress Note ---
Progress Note Date of Service Aug 01, 2017. Progress Note Discussed with patient after hemoglobin a1c resulted that it looks like he is a diabetic. His BSG's support such as well. 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 Start lantus 8 units daily. novolog w/ meals. Echo reviewed - significant systolic CHF - due to tachyarrhythmia (ie a. fib)? I discussed the echo results w/ him. Joseph HOLDEN MD
[2017-08-01 23:40] VITALS: BP 104/71; PULSE 85; TEMP 37.2; O2SAT 96
[2017-08-02 03:03] LABS: PTT PATIENT 62.7 SECONDS (21.0-31.0)
[2017-08-02 04:08] VITALS: BP 109/73; PULSE 84; TEMP 37.4; O2SAT 95
[2017-08-02] MEDS: BUPRENORPHINE/NALOXONE 8/2 MG TAB PO SCH ×2 (05:42→16:08)
[2017-08-02 07:16] LABS: HEMATOCRIT 35.8 % (42-52); MEAN CELL VOLUME 86.5 fL (80-100); MEAN CORPUSCULAR HGB CONC 33.5 g/dl (32-36); MEAN PLATELET VOLUME 10.7 fL (7.4-10.4); PLATELET COUNT 177 K/uL (130-400); RED CELL DISTRIBUTION WIDTH CV 13.3 % (11.5-14.5); WHITE BLOOD COUNT 8.44 K/uL (4.8-10.8)
[2017-08-02 07:28] LABS: PTT PATIENT 42.6 SECONDS (21.0-31.0)
[2017-08-02 07:42] LABS: CALCIUM 8.8 mg/dl (8.5-10.1); CREATININE 0.79 mg/dl (0.60-1.40); POTASSIUM 3.9 mmol/L (3.5-5.1)
[2017-08-02 08:00] VITALS: BP 129/52; PULSE 83; TEMP 36.3; O2SAT 96
[2017-08-02] MEDS: CARISOPRODOL 350 MG TAB PO SCH ×3 (08:06→20:08)
[2017-08-02] MEDS: GUAIFENESIN 600 MG TABCR PO SCH ×2 (08:06→20:08)
[2017-08-02] MEDS: PANTOprazole SOD 40 MG TAB PO SCH (08:07)
[2017-08-02] MEDS: CHOLECALCIFEROL 1000 INTER.UNIT TAB PO SCH (08:07)
[2017-08-02] MEDS: NICOTINE 7 MG/24 HR TDSY TD SCH (08:08)
[2017-08-02] MEDS: DILTIAZEM HCL INJ 125 MG in DEXTROSE 5% 100ML IV PRN ×2 (09:01→18:30)
[2017-08-02] MEDS: INSULIN ASPART 100 UNITS/ML 3 ML PEN SC SCH ×4 (09:03→20:59)
[2017-08-02] MEDS: AZITHROMYCIN IV 250 MG in DEXTROSE 5% 250ML 250 ML IV SCH (09:05)
[2017-08-02] MEDS: ACETAMINOPHEN 325 MG TAB PO PRN (10:29)
[2017-08-02] MEDS ORDERED: HEPARIN IV BOLUS 3,000 UNIT in SYRINGE 0 ML IV ONE (11:00)
[2017-08-02 11:13] VITALS: BP 106/49; PULSE 62; TEMP 37.3; O2SAT 96
[2017-08-02 14:09] VITALS: BMI 23.1
--- NOTE | 2017-08-02 15:01 | Cardiology Follow-Up ---
Subjective Date of Service: Aug 02, 2017. Pt evaluation today including: conversation w/ patient, conversation w/ family , physical exam, lab review, review of studies, review of inpatient medication list History of Present Illness This is a very pleasant 58-year-old gentleman who has a possible history of cystic fibrosis although he has not had pulmonary difficulty with that to my knowledge, however he did have pancreatitis. He presents with several days of dyspnea on exertion and some chest discomfort. However he has not felt well for about one month. He tells me that he went to an urgent care center and also to the [place] ER within the last month but I don't have those records and he was not told he had an atrial arrhythmia. Several days ago he was noted to have a rapid pulse by a friend of his who is an EMT and his symptoms of cough and sputum production worsened and he was noted to have a fever and therefore he came to the emergency room. In the emergency room he was noted to have atrial flutter with a very rapid ventricular response, with emergency room treatment ( IV diltiazem) the rate slowed considerably. He tells me that over the last several months he may have been more fatigued than usual, but not enough to seek attention. Over the summer he thinks that he had a normal exercise ability although he is not terribly active due to long- standing back difficulty. The chest discomfort that he describes was brief, was a pressure sensation and sounded as though was associated with shortness of breath during the night before admission. It sounds as though was not exertional. Evaluation so far has included echocardiography showing severe left ventricular dysfunction with ejection fraction of 30-35% as well as some unusual trabeculations which will need to be evaluated further. He has been diuresed and feels much better, he remains on intravenous diltiazem for heart rate control. His cardiac enzymes have been negative suggesting this is not an ischemic event. He feels now that his breathing is better, but he is not very active to see whether his shortness of breath with activity. Social History Smoking Status: Current Every Day Smoker (1 ppd, now less; started teenage years) History of Alcohol Use: No Review of Systems Respiratory: + see HPI, + dyspnea on exertion Cardiac: + see HPI, No orthopnea, No PND, No edema, No palpitations Medications Cardiovascular: Item Value Date Time Heparin Sodium/ 500 ml @ 34 mls/hr 08/01/17 1500 Dextrose .[id number] PRN/IV 08/01/17 1530 Objective Vital Signs Past 12 Hours Date Time Temp Pulse Resp B/P (MAP) Pulse Ox O2 Delivery O2 Flow Rate FiO2 08/02/17 11:16 Nasal Cannula 2.0 08/02/17 11:13 37.3 62 18 106/49 (68) 96 Room Air 08/02/17 08:00 Nasal Cannula 2.0 08/02/17 08:00 36.3 83 18 129/52 (77) 96 Room Air 08/02/17 04:08 37.4 84 23 109/73 (85) 95 Nasal Cannula 2.0 08/02/17 04:01 Nasal Cannula 2.0 Last Recorded Weight-Kilograms: 68.800 Intake & Output 8-Hour Column 08/02/17 08/02/17 08/03/17 15:59 23:59 07:59 Intake Total 240 ml Output Total 600 ml Balance -360 ml 24-Hour Column 08/03/17 07:59 Intake Total 240 ml Output Total 600 ml Balance -360 ml Physical Exam Constitutional: General Apperance: heathly-appearing Level of Distress: NAD Lungs: Respiratory effort: no dyspnea, good air movement Auscultation: breath sounds normal Cardiovascular: Heart Auscultation: no rubs, no gallops, II/ WSM, irregular rate rhythm Peripheral Pulses: Bruits: none appreciated Extremities: no edema Data Laboratory Results: Last 24 Hours Test 08/01/17 15:02 08/01/17 16:15 08/01/17 20:03 08/01/17 20:10 Bedside Glucose 155 mg/dl 209 mg/dl Troponin I < 0.015 ng/ml Activated Partial Thromboplast Time 33.6 SECONDS Partial Thromboplastin Ratio 1.3 Test 08/01/17 22:29 08/02/17 02:27 08/02/17 07:02 08/02/17 11:16 Troponin I 0.018 ng/ml Activated Partial Thromboplast Time 62.7 SECONDS 42.6 SECONDS Partial Thromboplastin Ratio 2.4 1.6 White Blood Count 8.44 K/uL Red Blood Count 4.14 M/uL Hemoglobin 12.0 g/dL Hematocrit 35.8 % Mean Corpuscular Volume 86.5 fL Mean Corpuscular Hemoglobin 29.0 pg Mean Corpuscular Hemoglobin Concent 33.5 g/dl RDW Standard Deviation 42.0 fL RDW Coefficient of Variation 13.3 % Platelet Count 177 K/uL Mean Platelet Volume 10.7 fL Sodium Level 134 mmol/L Potassium Level 3.9 mmol/L Chloride Level 100 mmol/L Carbon Dioxide Level 29 mmol/L Anion Gap 5.0 mmol/L Blood Urea Nitrogen 13 mg/dl Creatinine 0.79 mg/dl Est Creatinine Clear Calc Drug Dose 101.0 ml/min Estimated GFR () 116.3 Estimated GFR (Non- 100.4 BUN/Creatinine Ratio 16.5 Random Glucose 162 mg/dl Calcium Level 8.8 mg/dl Magnesium Level 1.8 mg/dl Bedside Glucose 275 mg/dl Telemetry reviewed: Atrial fibrillation with continued elevated heart rates, although not excessive. Assessment and Plan #1. Shortness of breath: This has improved substantially with diuresis suggesting it was in large part congestive heart failure and his lungs sounded good today. He has not been very active but at rest he is not having shortness of breath currently. He probably does not have a lot of fluid to lose at this point. #2. Cardiomyopathy: He has a significant cardiomyopathy based on echocardiography. Based on symptoms this may have occurred relatively recently, perhaps over the last several months. Prior to that he does not describe any difficulty with exertion but he could have long-standing left ventricular dysfunction and adapted to it, the left atrial size which suggests some degree of chronicity. There is no evidence of ischemia, although we may need to perform some type of evaluation for that in the hospital. I would like to get his heart rate under better control and I'm going to start beta-blockade today. His apex was somewhat trabeculated but we want to confirm endocardial definition and we will repeat the echo with contrast tomorrow. #3. Atrial fibrillation and flutter: I would control his rate with beta- blockade which will also help his cardiomyopathy. We can add digoxin if necessary. He will need anticoagulation, I agree with heparin currently in case we have to perform invasive evaluation in the near future. This may be a cause of his cardiomyopathy or may be result of it. #4. Chest discomfort: Although chest discomfort in the setting of cardiomyopathy is worrisome and suggestive of ischemic heart disease, with negative cardiac enzymes and what appears to be diffuse hypokinesis and no ECG evidence of infarction I suspect this is nonischemic. His enzymes have been negative suggesting this is not an ischemic event, and there is also no evidence of demand ischemia. We probably should perform some type of ischemia evaluation while he is here but I would not arrange that as yet. Thank you for allowing me to participate in his care.
[2017-08-02] MEDS ORDERED: CARVEDILOL 12.5 MG TAB PO ONE (15:30)
[2017-08-02 15:32] VITALS: BP 121/79; PULSE 79; TEMP 36.7; O2SAT 99
[2017-08-02] MEDS: CEFTRIAXONE SOD INJ 2,000 MG in DEXTROSE 5% 50ML 50 ML IV SCH (15:39)
[2017-08-02 16:37] LABS: PTT PATIENT 57.7 SECONDS (21.0-31.0)
--- NOTE | 2017-08-02 17:12 | Progress Note ---
Subjective Date of Service: Aug 02, 2017. Subjective Pt evaluation today including: conversation w/ patient, physical exam, chart review, lab review, review of studies, conversation w/ service delivery consultant, review of inpatient medication list Port doing okay, pulse some cough but no sputum, no dyspnea denied dysuria, no palpitations, denied chest pain, have been smoking, quit 1 weeks ago Problem List Medical Problems: (1) Atrial flutter with rapid ventricular response Status: Acute (2) Pulmonary vascular congestion Status: Acute Review of Systems Constitutional: + fatigue, No fever, No chills, No sweats, No weight loss, No weakness, No problem reported Eyes: No worsening of vision, No eye pain, No redness, No discharge, No diplopia ENT: No hearing loss, No unusual epistaxis, No nasal symptoms, No sore throat, No tinnitus, No dental problems, No trouble swallowing Respiratory: No cough, No sputum, No wheezing, No shortness of breath, No dyspnea on exertion, No dyspnea at rest, No hemoptysis Cardiac: No chest pain, No orthopnea, No PND, No edema, No claudication, No palpitations Abdomen: No pain, No nausea, No vomiting, No diarrhea, No constipation Musculoskeletal: No joint pain, No muscle pain, No swelling, No calf pain Male : No dysuria, No urinary frequency, No incontinence, No nocturia more than once/night, No slowing stream, No hematuria Neurologic: No memory loss, No paralysis, No weakness, No numbness/tingling, No vertigo, No balance problems Psychiatric: No depression symptoms, No anhedonism, No anxiety, No insomnia, No substance abuse Heme: No abnormal bleeding/bruising, No clotting problems, No swollen lymph nodes, No night sweats Endo: No fatigue, No excessive thirst, No excessive urination Skin: No rash, No itch, No new/changing skin lesions, No color change, No bleeding Objective Vital Signs Date Time Temp Pulse Resp B/P (MAP) Pulse Ox O2 Delivery O2 Flow Rate FiO2 08/02/17 15:32 36.7 79 20 121/79 (93) 99 Nasal Cannula 2.0 08/02/17 15:04 Nasal Cannula 2.0 08/02/17 11:16 Nasal Cannula 2.0 08/02/17 11:13 37.3 62 18 106/49 (68) 96 Room Air 08/02/17 08:00 Nasal Cannula 2.0 08/02/17 08:00 36.3 83 18 129/52 (77) 96 Room Air 08/02/17 04:08 37.4 84 23 109/73 (85) 95 Nasal Cannula 2.0 08/02/17 04:01 Nasal Cannula 2.0 08/02/17 00:01 Nasal Cannula 2.0 08/01/17 23:40 37.2 85 19 104/71 (82) 96 Room Air 08/01/17 20:13 Nasal Cannula 2.0 08/01/17 19:42 37.1 82 20 119/73 (88) 95 Nasal Cannula 2.0 Physical Exam General Appearance: WD/WN, no apparent distress, + pertinent finding (awake and alert and orientated 3, no Brian's name) Eyes: normal inspection, PERRL, EOMI, sclerae normal ENT: normal ENT inspection, hearing grossly normal, pharynx normal Neck: supple, no adenopathy, thyroid normal, no JVD, no carotid bruits, trachea midline Respiratory/Chest: chest non-tender, normal breath sounds, no respiratory distress, no accessory muscle use, + decreased breath sounds Cardiovascular: regular rate, rhythm, no edema, no gallop, no JVD, no murmur, + irregularly irregular Abdomen: normal bowel sounds, non tender, soft, no organomegaly, no pulsatile mass Extremities: normal range of motion, non-tender, normal inspection, no pedal edema, no calf tenderness, normal capillary refill, pelvis stable Neurologic/Psychiatric: conveyor 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 II-XII nml as tested, no motor/sensory deficits, alert, normal mood/affect, oriented x 3 Skin: normal color, warm/dry, no rash Lymphatic: no adenopathy Laboratory Results Last 24 Hours Test 08/01/17 20:03 08/01/17 20:10 08/01/17 22:29 08/02/17 02:27 Activated Partial Thromboplast Time 33.6 SECONDS 62.7 SECONDS Partial Thromboplastin Ratio 1.3 2.4 Bedside Glucose 209 mg/dl Troponin I 0.018 ng/ml Test 08/02/17 07:02 08/02/17 11:16 08/02/17 15:55 08/02/17 16:29 White Blood Count 8.44 K/uL Red Blood Count 4.14 M/uL Hemoglobin 12.0 g/dL Hematocrit 35.8 % Mean Corpuscular Volume 86.5 fL Mean Corpuscular Hemoglobin 29.0 pg Mean Corpuscular Hemoglobin Concent 33.5 g/dl RDW Standard Deviation 42.0 fL RDW Coefficient of Variation 13.3 % Platelet Count 177 K/uL Mean Platelet Volume 10.7 fL Activated Partial Thromboplast Time 42.6 SECONDS 57.7 SECONDS Partial Thromboplastin Ratio 1.6 2.2 Sodium Level 134 mmol/L Potassium Level 3.9 mmol/L Chloride Level 100 mmol/L Carbon Dioxide Level 29 mmol/L Anion Gap 5.0 mmol/L Blood Urea Nitrogen 13 mg/dl Creatinine 0.79 mg/dl Est Creatinine Clear Calc Drug Dose 101.0 ml/min Estimated GFR () 116.3 Estimated GFR (Non- 100.4 BUN/Creatinine Ratio 16.5 Random Glucose 162 mg/dl Calcium Level 8.8 mg/dl Magnesium Level 1.8 mg/dl Bedside Glucose 275 mg/dl 298 mg/dl Test 08/02/17 16:30 Bedside Glucose 324 mg/dl Assessment and Plan 56yo male with worsening cough/dyspnea/fever/altered mental status for 2-3 days admitted on 08/01/2017 with A rapid a. flutter and also possible mild acute CHF a. flutter with RVR: Now is rate controlled Continue Cardizem Checked TSH is normal, cardiac enzyme troponin negative 3 sets cont heparin, will discussed about oral anticoag options Checked echo was done today , results below: . Normal LV size, mild concentric LVH. * 2. Moderate to severe global LV dysfunction. LVEF 30-35%. * 3. Normal RV size and function. * 4. Moderate mitral regurgitation. * 5. Diastolic dysfunction. * 6. Apical echoes consistent with trabeculae are noted. Cannot rule out associated thrombi. * 7. Borderline PH. Est PASP 35-40 mmHg. Est CVP 8 mmHg. * 8. No prior studies for comparison. possible acute on chronic and systolic CHF with cardiomyopathy, received IV lasix in the ER, will f/u, no obvious fluid over load, no lasix for now Possible sepsis upon admission with fever, altered mental status, cough/dyspnea Possible metabolic encephalopathy upon admission resolved, patient currently awake and alert and orientated 3, know current Brian's name So far no any obvious source of infection, no UTI, chest x-ray was not remarkable Blood cx's have been drawn. Checked rapid flu which was negative On empiric rocephin 2 grams IV daily while awaiting cultures & test results. We'll repeat 2 view chest x-ray to further define any pulmonary source of infection, and check ESR and CRP as well CF carrier vs cystic fibrosis , advice to f/u with pcp or specialist, but will be sensitive for possible severe infection and subseptale to infection because of this medical conditions chronic pain syndrome - continue suboxone 8mg BID per outpatient dosing. hyperglycemia, check a1c, and DM education, cont iss Continued [facility] stay due to: multiple IV medications needed Discharge planning: home
--- NOTE | 2017-08-02 17:32 | DIAGNOSTIC IMAGING REPORT ---
CHEST 2 VIEWS ROUTINE CLINICAL HISTORY: sepsis and possible pna dyspnea COMPARISON STUDY: 08/01/2017 FINDINGS: Slight increase in size of small bilateral pleural effusions. Findings of pulmonary edema and/or congestive failure with underlying interstitial prominence is similar. Pulmonary apices remain clear. IMPRESSION: Congestive failure versus interstitial pulmonary edema. Small bilateral pleural effusions slightly increased in volume. The above report was generated using voice recognition software. It may contain grammatical, syntax or spelling errors. Electronically signed by: Andrei Locke M.D. 08/02/2017 5:30 PM Dictated Date/Time: 08/02/2017 5:29 PM
[2017-08-02 19:39] VITALS: BP 144/76; PULSE 80; TEMP 37.1; O2SAT 95
[2017-08-02] MEDS: CARVEDILOL 12.5 MG TAB PO SCH (20:39)
[2017-08-02] MEDS: HEPARIN 25,000 UNIT/500ML D5W 500 ML IV PRN (20:45)
[2017-08-02 23:40] VITALS: BP 104/63; PULSE 79; TEMP 36.9; O2SAT 95
[2017-08-03] VITALS (10 sets, daily range): BP systolic 96–135; BP diastolic 58–84; PULSE 71–89; TEMP 36.8–37.3; O2SAT 93–97; BMI 23.1
[2017-08-03 05:49] LABS: PTT PATIENT 46.4 SECONDS (21.0-31.0)
[2017-08-03] MEDS: BUPRENORPHINE/NALOXONE 8/2 MG TAB PO SCH ×2 (06:21→14:50)
[2017-08-03] MEDS ORDERED: HEPARIN IV BOLUS 3,000 UNIT in SYRINGE 0 ML IV ONE (06:45)
[2017-08-03] MEDS: INSULIN ASPART 100 UNITS/ML 3 ML PEN SC SCH ×4 (07:40→20:34)
[2017-08-03] MEDS: AZITHROMYCIN IV 250 MG in DEXTROSE 5% 250ML 250 ML IV SCH (07:47)
[2017-08-03] MEDS: PANTOprazole SOD 40 MG TAB PO SCH (07:48)
[2017-08-03] MEDS: CHOLECALCIFEROL 1000 INTER.UNIT TAB PO SCH (07:48)
[2017-08-03] MEDS: CARISOPRODOL 350 MG TAB PO SCH ×3 (07:48→20:35)
[2017-08-03] MEDS: GUAIFENESIN 600 MG TABCR PO SCH ×2 (07:48→20:29)
[2017-08-03] MEDS: NICOTINE 7 MG/24 HR TDSY TD SCH (07:49)
[2017-08-03] MEDS: CARVEDILOL 12.5 MG TAB PO SCH ×2 (07:49→20:29)
[2017-08-03] MEDS ORDERED: PERFLUTREN LIPID MICROSPHERE (DEFINITY) IV ONE (07:55)
--- NOTE | 2017-08-03 08:25 | ECHOCARDIOGRAM REPORT ---
*NOTICE TO RECEIVING [employer] This information is strictly Confidential and protected under [place] law. [place] law prohibits you from making any further disclosure of this information unless further disclosure is expressly permitted by the written consent of the person to whom it pertains or is authorized by law. A general authorization for the release of medical or other information is not sufficient for this purpose. Hospital accepts no responsibility if the information is made available to any other person, INCLUDING THE PATIENT. Interpretation Summary * Name: SOM KIRBY Study Date: 08/03/2017 07:06 AM BP: 111/61 mmHg * Patient Location: C.2T\S\S240\S\2 HR: 88 * : 1960 (M/d/yyyy) Gender: Male Height: 67 in * Age: 56 yrs Ethnicity: CA Weight: 151 lb * Ordering Physician: Trevon Arellano * Referring Physician: Self, Referred * Performed By: Margoth Fan RDCS * * Reason For Study: Cardiomyopathy * BSA: 1.8 m2 * -- Conclusions -- * Limited study for evaluation of possible LV thrombus * Prominent apical trabeculations without evidence LV thrombus * Severely reduced LV systolic function Procedure Details * Limited views were obtained. * One vial of Definity ultrasound contrast was diluted in normal saline to a total volume of 10 ml. A total of '2' ml of solution was administered during imaging. * Lot # [id number] of Definity utilized for procedure. * Expiration date . * The attending nurse who injected the contrast agent was Jennifer Morales RN. * A contrast injection of Definity was performed to improve assessment of LV function. Left Ventricle * Ejection Fraction = 35-40%. MMode 2D Measurements and Calculations IVSd 0.96 cm IVSs 1.1 cm LVIDd 5.7 cm LVIDs 4.7 cm LVPWd 1.0 cm LVPWs 1.4 cm IVS/LVPW 0.94 FS 17.1 % EDV(Teich) 158.8 ml ESV(Teich) 102.9 ml EF(Teich) 35.2 % EDV(cubed) 183.3 ml ESV(cubed) 104.5 ml EF(cubed) 43.0 % % IVS thick 17.8 % % LVPW thick 40.3 % LV mass(C)d 222.2 grams LV mass(C)dI 123.8 grams/m\S\2 LV mass(C)s 233.7 grams LV mass(C)sI 130.3 grams/m\S\2 SV(Teich) 55.9 ml SI(Teich) 31.2 ml/m\S\2 SV(cubed) 78.8 ml SI(cubed) 43.9 ml/m\S\2 LVAd ap4 40.7 cm\S\2 LVLd ap4 8.1 cm EDV(MOD-sp4) 175.1 ml EDV(sp4-el) 172.9 ml LVAs ap4 28.2 cm\S\2 LVLs ap4 6.7 cm ESV(MOD-sp4) 100.9 ml ESV(sp4-el) 100.0 ml EF(MOD-sp4) 42.3 % EF(sp4-el) 42.1 % LVAd ap2 44.9 cm\S\2 LVLd ap2 8.6 cm EDV(MOD-sp2) 190.9 ml EDV(sp2-el) 198.3 ml LVAs ap2 33.1 cm\S\2 LVLs ap2 7.7 cm ESV(MOD-sp2) 120.0 ml ESV(sp2-el) 120.4 ml EF(MOD-sp2) 37.2 % EF(sp2-el) 39.3 % LVLd %diff 5.5 % EDV(MOD-bp) 190.0 ml LVLs %diff 12.6 % ESV(MOD-bp) 117.2 ml EF(MOD-bp) 38.3 % SV(MOD-sp4) 74.1 ml SI(MOD-sp4) 41.3 ml/m\S\2 SV(MOD-sp2) 70.9 ml SI(MOD-sp2) 39.5 ml/m\S\2 SV(MOD-bp) 72.7 ml SI(MOD-bp) 40.5 ml/m\S\2 SV(sp4-el) 72.8 ml SI(sp4-el) 40.6 ml/m\S\2 SV(sp2-el) 78.0 ml SI(sp2-el) 43.4 ml/m\S\2
--- NOTE | 2017-08-03 10:18 | Progress Note ---
Subjective Date of Service: Aug 03, 2017. Subjective Pt evaluation today including: conversation w/ patient, conversation w/ family , physical exam, chart review, lab review, review of studies, conversation w/ pmo consultant, review of inpatient medication list Was converted to NSR, has been continue on normal sinus rhythm, reported fatigue , has been out of bed to the chair and bathroom Report never been told has diabetic, Problem List Medical Problems: (1) Atrial flutter with rapid ventricular response Status: Acute (2) Pulmonary vascular congestion Status: Acute Review of Systems Constitutional: + weakness, + fatigue, No fever, No chills, No sweats, No weight loss, No problem reported Eyes: No worsening of vision, No eye pain, No redness, No discharge, No diplopia ENT: No hearing loss, No unusual epistaxis, No nasal symptoms, No sore throat, No tinnitus, No dental problems, No trouble swallowing Respiratory: No cough, No sputum, No wheezing, No shortness of breath, No dyspnea on exertion, No dyspnea at rest, No hemoptysis Cardiac: No chest pain, No orthopnea, No PND, No edema, No claudication, No palpitations Abdomen: No pain, No nausea, No vomiting, No diarrhea, No constipation Musculoskeletal: No joint pain, No muscle pain, No swelling, No calf pain Male : No dysuria, No urinary frequency, No incontinence, No nocturia more than once/night, No slowing stream, No hematuria Neurologic: No memory loss, No paralysis, No weakness, No numbness/tingling, No vertigo, No balance problems Psychiatric: No depression symptoms, No anhedonism, No anxiety, No insomnia, No substance abuse Heme: No abnormal bleeding/bruising, No clotting problems, No swollen lymph nodes, No night sweats Endo: No fatigue, No excessive thirst, No excessive urination Skin: No rash, No itch, No new/changing skin lesions, No color change, No bleeding Objective Vital Signs Date Time Temp Pulse Resp B/P (MAP) Pulse Ox O2 Delivery O2 Flow Rate FiO2 08/03/17 08:00 95 Room Air 08/03/17 07:27 36.9 83 16 100/60 (73) 93 Room Air 08/03/17 04:00 Room Air 08/03/17 03:35 37.3 88 18 111/69 (83) 95 Nasal Cannula 2.0 08/03/17 00:01 Room Air 95 08/02/17 23:40 36.9 79 18 104/63 (77) 95 Nasal Cannula 2.0 08/02/17 20:00 Room Air 95 08/02/17 19:39 37.1 80 20 144/76 (98) 95 Room Air 08/02/17 15:32 36.7 79 20 121/79 (93) 99 Nasal Cannula 2.0 08/02/17 15:04 Nasal Cannula 2.0 08/02/17 11:16 Nasal Cannula 2.0 08/02/17 11:13 37.3 62 18 106/49 (68) 96 Room Air Physical Exam General Appearance: WD/WN, no apparent distress, + thin Eyes: normal inspection, PERRL, EOMI, sclerae normal ENT: normal ENT inspection, hearing grossly normal, pharynx normal Neck: supple, no adenopathy, thyroid normal, no JVD, no carotid bruits, trachea midline Respiratory/Chest: chest non-tender, lungs clear, normal breath sounds, no respiratory distress, no accessory muscle use Cardiovascular: regular rate, rhythm, no edema, no gallop, no JVD, no murmur Abdomen: normal bowel sounds, non tender, soft, no organomegaly, no pulsatile mass Extremities: normal range of motion, non-tender, normal inspection, no pedal edema, no calf tenderness, normal capillary refill, pelvis stable Neurologic/Psychiatric: chief design 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 II-XII nml as tested, no motor/sensory deficits, alert, normal mood/affect, oriented x 3 Skin: normal color, warm/dry, no rash Lymphatic: no adenopathy Laboratory Results Last 24 Hours Test 08/02/17 11:16 08/02/17 15:55 08/02/17 16:29 08/02/17 16:30 Bedside Glucose 275 mg/dl 298 mg/dl 324 mg/dl Activated Partial Thromboplast Time 57.7 SECONDS Partial Thromboplastin Ratio 2.2 Test 08/02/17 20:32 08/02/17 23:44 08/03/17 05:16 08/03/17 06:15 Bedside Glucose 115 mg/dl 207 mg/dl 254 mg/dl Activated Partial Thromboplast Time 46.4 SECONDS Partial Thromboplastin Ratio 1.8 Assessment and Plan 56yo male with worsening cough/dyspnea/fever/altered mental status for 2-3 days admitted on 08/01/2017 with A rapid a. flutter and also possible mild acute CHF a. flutter with RVR upon admission, has converted to normal sinus rhythm Continue current medicine of Coreg Checked TSH is normal, cardiac enzyme troponin negative 3 sets cont heparin, will discussed with cardiology about oral anticoag options because of "Apical echoes consistent with trabeculae are noted. Cannot rule out associated thrombi." In repeated echo, will follow-up cardiology improved possible acute on chronic and systolic CHF with cardiomyopathy, received IV lasix in the ER, will f/u, no obvious fluid over load, mainly no dose on Lasix because of lung congestions, we are going to check BMP, continue beta marcel Possible sepsis upon admission with fever, altered mental status, cough/dyspnea Possible metabolic encephalopathy upon admission resolved, patient has been awake and alert and orientated 3, know current President's name So far no any obvious source of infection, no UTI, chest x-ray was not remarkable Blood cx's have been drawn. So far is negative 2 set 48 hours Checked rapid flu which was negative Has been on empiric rocephin 2 grams IV daily for 48 hours, we'll narrow abx for the treatment of bronchitis with azithromycin and Augmentin because he was cough and because no evidence of other infection Uncontrolled diabetic with an elevated blood glucose around 300, patient never diagnosed diabetic before, with his history of chronic pancreatitis, I feel oral glycemic medication possible will not help have request diabetic education and nurse teaching for injection of insulin, was started no dose of Lantus by using glargine pain at 6 units and nighttime, patient has PCP Dr. scott in [facility] , recommended patient to follow-up with him for further follow-up CF carrier vs cystic fibrosis , advice to f/u with pcp or specialist, but will be sensitive for possible severe infection and subseptale to infection because of this medical conditions chronic pain syndrome - continue suboxone 8mg BID per outpatient dosing. DVT prophylaxis is covered Continued [facility] stay due to: home environment unsafe for pt Discharge planning: home
--- NOTE | 2017-08-03 11:40 | Cardiology Follow-Up ---
Subjective Date of Service: Aug 03, 2017. Pt evaluation today including: conversation w/ patient, physical exam, lab review, review of studies, review of inpatient medication list, conversation w/ attending History of Present Illness This is a very pleasant 58-year-old gentleman who has a possible history of cystic fibrosis although he has not had pulmonary difficulty with that to my knowledge, however he did have pancreatitis. He presents with several days of dyspnea on exertion and some chest discomfort. However he has not felt well for about one month. He tells me that he went to an urgent care center and also to the [place] ER within the last month but I don't have those records and he was not told he had an atrial arrhythmia. Several days ago he was noted to have a rapid pulse by a friend of his who is an EMT and his symptoms of cough and sputum production worsened and he was noted to have a fever and therefore he came to the emergency room. In the emergency room he was noted to have atrial flutter with a very rapid ventricular response, with emergency room treatment ( IV diltiazem) the rate slowed considerably. He tells me that over the last several months he may have been more fatigued than usual, but not enough to seek attention. Over the summer he thinks that he had a normal exercise ability although he is not terribly active due to long- standing back difficulty. The chest discomfort that he describes was brief, was a pressure sensation and sounded as though was associated with shortness of breath during the night before admission. It sounds as though was not exertional. Evaluation so far has included echocardiography showing severe left ventricular dysfunction with ejection fraction of 30-35% as well as some unusual trabeculations which on further evaluation using contrast did not suggest a left ventricular clot. He has been diuresed and feels much better. His cardiac enzymes have been negative suggesting this is not an ischemic event. He converted to sinus rhythm yesterday, it is not clear whether he was aware of this conversion but he feels now that his breathing is better, but he is not very active to see whether his shortness of breath with activity. Social History Smoking Status: Current Every Day Smoker (1 ppd, now less; started teenage years) History of Alcohol Use: No Review of Systems Respiratory: No cough, No sputum, No wheezing, No shortness of breath, No dyspnea on exertion, No dyspnea at rest, No hemoptysis Cardiac: No chest pain, No orthopnea, No PND, No edema, No claudication, No palpitations Objective Vital Signs Past 12 Hours Date Time Temp Pulse Resp B/P (MAP) Pulse Ox O2 Delivery O2 Flow Rate FiO2 08/03/17 08:00 95 Room Air 08/03/17 07:27 36.9 83 16 100/60 (73) 93 Room Air 08/03/17 04:00 Room Air 08/03/17 03:35 37.3 88 18 111/69 (83) 95 Nasal Cannula 2.0 08/03/17 00:01 Room Air 95 08/02/17 23:40 36.9 79 18 104/63 (77) 95 Nasal Cannula 2.0 Last Recorded Weight-Kilograms: 69.000 Physical Exam Constitutional: General Apperance: heathly-appearing Level of Distress: NAD Lungs: Respiratory effort: no dyspnea, good air movement Auscultation: breath sounds normal Cardiovascular: Heart Auscultation: RRR, no rubs, no gallops, II/ WSM Peripheral Pulses: Bruits: none appreciated Extremities: no edema Data Laboratory Results: Last 24 Hours Test 08/02/17 11:16 08/02/17 15:55 08/02/17 16:29 08/02/17 16:30 Bedside Glucose 275 mg/dl 298 mg/dl 324 mg/dl Activated Partial Thromboplast Time 57.7 SECONDS Partial Thromboplastin Ratio 2.2 Test 08/02/17 20:32 08/02/17 23:44 08/03/17 05:16 08/03/17 06:15 Bedside Glucose 115 mg/dl 207 mg/dl 254 mg/dl Activated Partial Thromboplast Time 46.4 SECONDS Partial Thromboplastin Ratio 1.8 Imaging: A repeat echocardiogram this morning with intravenous contrast shows prominent trabeculations but no LV clot. Telemetry reviewed: Atrial fibrillation with a controlled rate until 2017 at 1648 when he converted to sinus rhythm. Assessment and Plan #1. Shortness of breath: This has improved substantially with diuresis and now with conversion to sinus rhythm.. #2. Cardiomyopathy: He has a significant cardiomyopathy based on echocardiography. Based on symptoms this may have occurred relatively recently, perhaps over the last several months. Prior to that he does not describe any difficulty with exertion but he could have long-standing left ventricular dysfunction and adapted to it, the left atrial size which suggests some degree of chronicity. There is no evidence of ischemia, although we may need to perform some type of evaluation for ischemia. His left ventricular function might be a little bit better today but not appreciably. We need to continue heart failure medications and hopefully titrate them over time. #3. Atrial fibrillation and flutter: I would continue beta-blockade which will also help his cardiomyopathy. We can add digoxin if necessary if he has recurrence. He will need anticoagulation, I would recommend Eliquis. #4. Chest discomfort: Although chest discomfort in the setting of cardiomyopathy is worrisome and suggestive of ischemic heart disease, with negative cardiac enzymes and what appears to be diffuse hypokinesis and no ECG evidence of infarction I suspect this is nonischemic. His enzymes have been negative suggesting this is not an ischemic event, and there is also no evidence of demand ischemia. We probably should perform some type of ischemia evaluation , I'm leaning toward a nuclear stress test and we'll try to arrange that. Thank you for allowing me to participate in his care.
[2017-08-03] MEDS: APIXABAN 2.5 MG TAB PO SCH ×2 (12:29→20:28)
[2017-08-03] MEDS: AMOXICILLIN/CLAVULANATE TAB 875 MG TAB PO SCH (18:06)
[2017-08-03] MEDS: INSULIN GLARGINE SOLOSTAR 100 UNITS/ML 3 ML PEN SC SCH (20:35)
[2017-08-04 03:58] VITALS: BP 92/51; PULSE 80; TEMP 36.7; O2SAT 97
[2017-08-04] MEDS: BUPRENORPHINE/NALOXONE 8/2 MG TAB PO SCH ×2 (06:23→15:35)
[2017-08-04 07:00] VITALS: BP 126/64; PULSE 68; TEMP 36.7; O2SAT 91
[2017-08-04 07:11] LABS: HEMATOCRIT 35.2 % (42-52); HEMOGLOBIN 11.4 g/dL (14.0-18.0); MEAN CELL VOLUME 86.5 fL (80-100); MEAN CORPUSCULAR HGB CONC 32.4 g/dl (32-36); MEAN PLATELET VOLUME 11.3 fL (7.4-10.4); PLATELET COUNT 175 K/uL (130-400); RED CELL DISTRIBUTION WIDTH CV 13.3 % (11.5-14.5); WHITE BLOOD COUNT 6.92 K/uL (4.8-10.8)
[2017-08-04 07:40] LABS: CALCIUM 9.4 mg/dl (8.5-10.1); CREATININE 0.78 mg/dl (0.60-1.40); POTASSIUM 4.3 mmol/L (3.5-5.1)
[2017-08-04] MEDS: GUAIFENESIN 600 MG TABCR PO SCH ×2 (07:40→19:45)
[2017-08-04] MEDS: AZITHROMYCIN 250 MG TAB PO SCH (07:40)
[2017-08-04] MEDS: PANTOprazole SOD 40 MG TAB PO SCH (07:41)
[2017-08-04] MEDS: APIXABAN 2.5 MG TAB PO SCH ×2 (07:41→19:45)
[2017-08-04] MEDS: NICOTINE 7 MG/24 HR TDSY TD SCH (07:41)
[2017-08-04] MEDS: AMOXICILLIN/CLAVULANATE TAB 875 MG TAB PO SCH ×2 (07:41→15:35)
[2017-08-04] MEDS: CARVEDILOL 12.5 MG TAB PO SCH ×2 (07:42→19:46)
[2017-08-04] MEDS: CHOLECALCIFEROL 1000 INTER.UNIT TAB PO SCH (07:42)
[2017-08-04] MEDS: INSULIN ASPART 100 UNITS/ML 3 ML PEN SC SCH ×5 (07:46→19:52)
[2017-08-04] MEDS: CARISOPRODOL 350 MG TAB PO SCH ×3 (08:11→19:46)
[2017-08-04] MEDS ORDERED: NICO7DIS7 TD (08:46)
[2017-08-04] MEDS ORDERED: AMOX1TAB43 PO (08:46)
[2017-08-04] MEDS ORDERED: INSDGIPEN SC (08:46)
[2017-08-04] MEDS ORDERED: CRG125 PO (08:46)
[2017-08-04] MEDS ORDERED: ELQ25 PO (08:46)
[2017-08-04] MEDS ORDERED: VTMD1000 PO (08:46)
[2017-08-04] MEDS ORDERED: AZIT-57 PO (08:46)
--- NOTE | 2017-08-04 08:47 | Discharge Instructions ---
Discharge Instructions Date of Service Aug 04, 2017. Admission Reason for Admission: Atrial Flutter With Rapid Ventricular Response Discharge Discharge Diagnosis / Problem: a. flutter with RVR upon admission, has converted to normal sinus rhythm Discharge Goals Goal(s): Decrease discomfort, Improve function, Increase independence, Improve disease control, Improve nutritional status, Learn about illness, Diagnostic testing, Therapeutic intervention, Prevent Disease Progression, Specific goals Activity Recommendations Activity Limitations: per Instructions/Follow-up section Exercise/Sports Limitations: as tolerated May Resume Sexual Activity: when tolerated Shower/Bathe: no limitations Driving or Machine Use: no limitations . Instructions / Follow-Up Instructions / Follow-Up you have Atrial flutter upon admission, has converted to normal sinus rhythm you need to follow up with pcp for possible need of water pill for your heart condition you possible have sepsis upon admission, so far no any obvious source of infection, we are continue antibiotics for bronchitis with azithromycin and Augmentin for now you have Uncontrolled diabetic , you need to follow up with pcp for tulio deluna work up for the Diagnosis of type i or type 2 diabetics, and was started love of Lantus by using glargine pen at 6 units and nighttime, need to follow up with PCP Dr. scott in [facility] for further optimize the care plan of diabetics, such as doing ISS etc., you have possible CF carrier vs cystic fibrosis , you need to follow up with pcp or specialist - you need to follow up with your primary care physician as we help scheduled for you - take medication as instructed, never overdose or any misuse, or take with alcohol, because misuse of medicine may cause organ damage or , call your primary care physician if have questions of medicaitons. - call your primary care physician OR go to local emergency room if has any fever/chill, chest pain, shortness of breathing, nausea/vomiting/abdominal pain , facial droop/slurry speech/local weakness, or if has any questions. - fall precaution - diet as instructed - you should understand that it is important to follow up the above instruction , and "not following the above instruction" may cause delayed or missed care of your medical conditions which may cause permanent organ damage and even . Current Hospital Diet Patient's current hospital diet: AHA Diet (Heart Healthy), Diabetes Type 1 Diet Discharge Diet Recommended Diet: Diabetes Type 2 Diet Pending Studies Studies pending at discharge: no Laboratory Results Hemoglobin A1c Test 08/01/17 10:25 Range/Units Estimated Average Glucose 177 mg/dl Hemoglobin A1c 7.8 H 4.5-5.6 % Medical Emergencies . Who to Call and When: Medical Emergencies: If at any time you feel your situation is an emergency, please call 911 immediately. . Non-Emergent Contact Non-Emergency issues call your: Primary Care Provider Call Non-Emergent contact if: you have a fever . . "Provider Documentation" section prepared by Beto Ruano. . VTE Core Measure Inpt VTE Proph given/why not?: Other Anticoagulation
[2017-08-04] MEDS ORDERED: INSU32MI13 (10:22)
--- NOTE | 2017-08-04 10:23 | Progress Note ---
Subjective Date of Service: Aug 04, 2017. Subjective Pt evaluation today including: conversation w/ patient, physical exam, chart review, lab review, review of studies, review of inpatient medication list Report feeling tired, was having some chest tight yesterday, no more chest tight , no other complaints, denied palpitations Problem List Medical Problems: (1) Atrial flutter with rapid ventricular response Status: Acute (2) Pulmonary vascular congestion Status: Acute Review of Systems Constitutional: + weakness, + fatigue, No fever, No chills, No sweats, No weight loss, No problem reported Eyes: No worsening of vision, No eye pain, No redness, No discharge, No diplopia ENT: No hearing loss, No unusual epistaxis, No nasal symptoms, No sore throat, No tinnitus, No dental problems, No trouble swallowing Respiratory: No cough, No sputum, No wheezing, No shortness of breath, No dyspnea on exertion, No dyspnea at rest, No hemoptysis Cardiac: No chest pain, No orthopnea, No PND, No edema, No claudication, No palpitations Abdomen: No pain, No nausea, No vomiting, No diarrhea, No constipation Musculoskeletal: No joint pain, No muscle pain, No swelling, No calf pain Male : No dysuria, No urinary frequency, No incontinence, No nocturia more than once/night, No slowing stream, No hematuria Neurologic: No memory loss, No paralysis, No weakness, No numbness/tingling, No vertigo, No balance problems Psychiatric: No depression symptoms, No anhedonism, No anxiety, No insomnia, No substance abuse Heme: No abnormal bleeding/bruising, No clotting problems, No swollen lymph nodes, No night sweats Endo: No fatigue, No excessive thirst, No excessive urination Skin: No rash, No itch, No new/changing skin lesions, No color change, No bleeding Objective Vital Signs Date Time Temp Pulse Resp B/P (MAP) Pulse Ox O2 Delivery O2 Flow Rate FiO2 08/04/17 07:00 36.7 68 18 126/64 (84) 91 Room Air 08/04/17 04:00 Room Air 08/04/17 03:58 36.7 80 15 92/51 (65) 97 Nasal Cannula 3.0 08/03/17 23:59 Room Air 08/03/17 23:43 37.1 75 19 96/60 (72) 93 Room Air 08/03/17 20:00 95 Room Air 08/03/17 19:35 37.2 89 16 135/84 (101) 95 Room Air 08/03/17 16:00 96 Room Air 08/03/17 15:34 36.8 71 18 126/80 (95) 96 Room Air 08/03/17 12:00 95 Room Air 08/03/17 11:41 36.9 75 16 100/58 (72) 97 Room Air Physical Exam General Appearance: WD/WN, no apparent distress, + thin, + pertinent finding ( looked tired and frail) Eyes: normal inspection, PERRL, EOMI, sclerae normal ENT: normal ENT inspection, hearing grossly normal, pharynx normal Neck: supple, no adenopathy, thyroid normal, no JVD, no carotid bruits, trachea midline Respiratory/Chest: chest non-tender, normal breath sounds, no respiratory distress, no accessory muscle use, + decreased breath sounds Cardiovascular: regular rate, rhythm, no edema, no gallop, no JVD, no murmur Abdomen: normal bowel sounds, non tender, soft, no organomegaly, no pulsatile mass Extremities: normal range of motion, non-tender, normal inspection, no pedal edema, no calf tenderness, normal capillary refill, pelvis stable 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, no motor/sensory deficits, alert, normal mood/affect, oriented x 3 Skin: normal color, warm/dry, no rash Lymphatic: no adenopathy Laboratory Results Last 24 Hours Test 08/03/17 11:10 08/03/17 13:01 08/03/17 15:40 08/03/17 20:26 Bedside Glucose 278 mg/dl 130 mg/dl 233 mg/dl Activated Partial Thromboplast Time 32.0 SECONDS Partial Thromboplastin Ratio 1.2 Test 08/04/17 06:35 08/04/17 06:37 Bedside Glucose 158 mg/dl White Blood Count 6.92 K/uL Red Blood Count 4.07 M/uL Hemoglobin 11.4 g/dL Hematocrit 35.2 % Mean Corpuscular Volume 86.5 fL Mean Corpuscular Hemoglobin 28.0 pg Mean Corpuscular Hemoglobin Concent 32.4 g/dl RDW Standard Deviation 42.0 fL RDW Coefficient of Variation 13.3 % Platelet Count 175 K/uL Mean Platelet Volume 11.3 fL Sodium Level 138 mmol/L Potassium Level 4.3 mmol/L Chloride Level 102 mmol/L Carbon Dioxide Level 28 mmol/L Anion Gap 8.0 mmol/L Blood Urea Nitrogen 18 mg/dl Creatinine 0.78 mg/dl Est Creatinine Clear Calc Drug Dose 102.3 ml/min Estimated GFR () 117.0 Estimated GFR (Non- 100.9 BUN/Creatinine Ratio 22.3 Random Glucose 151 mg/dl Calcium Level 9.4 mg/dl Magnesium Level 1.9 mg/dl Pro-B-Type Natriuretic Peptide 1917 pg/ml Assessment and Plan 56yo male with worsening cough/dyspnea/fever/altered mental status for 2-3 days admitted on 08/01/2017 with A rapid a. flutter and also possible mild acute CHF a. flutter with RVR upon admission, has converted to normal sinus rhythm Continue current medicine of Coreg Checked TSH is normal, cardiac enzyme troponin negative 3 sets Confirm with survey and mapping technician, no "ventricle thrombosis" in repeated echo today is pending for nuclear stress test because of chest tight rule out ischemic heart disease, possible acute on chronic and systolic CHF with cardiomyopathy upon admission, received IV lasix in the ER. Although patient has an elevated BNP and chest x-ray show some congestion , I don't believe have acute CHF going on now: patient no obvious fluid overload, oxygen level is in normal range, deny sob or dyspnea on exertion, continue beta marcel, no FLO inhibitor for now because blood pressure was in borderline low Possible sepsis upon admission with fever, altered mental status, cough/dyspnea Possible metabolic encephalopathy upon admission resolved, patient has been awake and alert and orientated 3, know current President's name So far no any obvious source of infection, no UTI, chest x-ray was not remarkable Blood cx's have been drawn. So far is negative 2 set 48 hours Checked rapid flu which was negative was on empiric rocephin 2 grams IV daily for 48 hours, was changed to oral antibiotic for the treatment of bronchitis with azithromycin and Augmentin because he was cough and because no evidence of other infection, Augmentin will be totally 7 days (includes Rocephin 2 days) and azithromycin will be totally 5 days Uncontrolled diabetic with an elevated blood glucose around 300, patient never diagnosed diabetic before, with his history of chronic pancreatitis, I feel oral glycemic medication possible will not help, have request diabetic education and nurse teaching for injection of insulin, have ordered RN to teach insulin injection ,was started no dose of Lantus by using glargine pain at 6 units and nighttime, patient has PCP Dr. Rey in [facility], recommended patient to follow-up with him for further follow-up, possible need to referral to supply aide to further evaluation of type I or type II diabetic, and need to have more education of doing insulin sliding scale, I will also ordered BD Katie needle to home when he is using Lantus pen at home CF carrier vs cystic fibrosis , advice to f/u with pcp or specialist, but will be sensitive for possible severe infection and subseptale to infection because of this medical conditions chronic pain syndrome - continue suboxone 8mg BID per outpatient dosing. DVT prophylaxis is covered May planning to discharge home tomorrow if condition to be stable, after discussed with survey and mapping technician Continued [facility] stay due to: home environment unsafe for pt Discharge planning: home
[2017-08-04 11:31] VITALS: BP 100/62; PULSE 69; TEMP 36.7; O2SAT 93
[2017-08-04 15:59] VITALS: BP 113/72; PULSE 79; TEMP 36.8; O2SAT 98
[2017-08-04 19:49] VITALS: BP 151/76; PULSE 81; TEMP 36.7; O2SAT 99
[2017-08-04] MEDS: INSULIN GLARGINE SOLOSTAR 100 UNITS/ML 3 ML PEN SC SCH (20:59)
[2017-08-04 23:32] VITALS: BP 109/66; PULSE 67; TEMP 36.7; O2SAT 97
[2017-08-05 04:09] VITALS: BP 91/60; PULSE 73; TEMP 36.7; O2SAT 95
[2017-08-05] MEDS: BUPRENORPHINE/NALOXONE 8/2 MG TAB PO SCH (06:00)
[2017-08-05 07:31] VITALS: BP 115/69; PULSE 73; TEMP 36.6; O2SAT 96
[2017-08-05 08:00] VITALS: O2SAT 95
[2017-08-05] MEDS: AMOXICILLIN/CLAVULANATE TAB 875 MG TAB PO SCH (08:08)
[2017-08-05] MEDS: CARVEDILOL 12.5 MG TAB PO SCH (08:13)
[2017-08-05] MEDS: APIXABAN 2.5 MG TAB PO SCH (08:13)
[2017-08-05] MEDS: GUAIFENESIN 600 MG TABCR PO SCH (08:14)
[2017-08-05] MEDS: PANTOprazole SOD 40 MG TAB PO SCH (08:14)
[2017-08-05] MEDS: CHOLECALCIFEROL 1000 INTER.UNIT TAB PO SCH (08:14)
[2017-08-05] MEDS: AZITHROMYCIN 250 MG TAB PO SCH (08:14)
[2017-08-05] MEDS: NICOTINE 7 MG/24 HR TDSY TD SCH (08:15)
[2017-08-05] MEDS: INSULIN ASPART 100 UNITS/ML 3 ML PEN SC SCH (08:21)
[2017-08-05] MEDS: CARISOPRODOL 350 MG TAB PO SCH (08:22)
[2017-08-05] MEDS: ACETAMINOPHEN 325 MG TAB PO PRN (08:29)
[2017-08-05] MEDS ORDERED: LANC-393 SQ (08:30)
[2017-08-05] MEDS ORDERED: GLUC1TES34 SQ (08:30)
--- NOTE | 2017-08-05 08:50 | Myocardial Perfusion Study ---
Myocardial Perfusion Study Rpt Myocardial Perfusion Study Rpt Date of Service 08/04/2017 Myocardial Perfusion Study Rpt Procedure: 1. Myocardial perfusion study performed in multiple views/images 2. Exercise stress ECG Indications: 1. Atrial flutter with RVR 2. Cardiomyopathy Consent: Informed written consent was obtained prior to the procedure. Ordering physician: Dr. Arellano Procedural details: For the stress portion of the study, 31.7 mCi of technetium 99m Cardiolite, injected at 2:00 p.m. on 08/04/2017. 15 minutes following the injection, imaging of the heart was performed in multiple projections. For the rest portion of the study, 9.9 mCi technetium 99m Cardiolite was injected intravenously at 12:05 p.m. on 08/04/2017. 1 hour following the injection, imaging of the heart was performed in the same projections. Exercise treadmill ECG: Patient exercised via standard Guy protocol for 6 minutes and 45 seconds, attaining 7 METS. Exercise was stopped secondary to back and leg pain. No angina. Resting ECG demonstrated: Sinus rhythm with PACs at 69 bpm. Nonspecific T- wave abnormality. Maximum heart rate: 98 bpm Resting blood pressure: 110/70 mmHg Maximum blood pressure: 130/80 mmHg Maximal, age-predicted heart rate: 59 % Significant ST changes: None Arrhythmia: None Symptoms: No chest pain. Back and leg pain. Findings: Rotating raw imaging demonstrated no significant lung uptake. There is no significant motion artifact. Heart size appeared dilated. Myocardial perfusion demonstrated intestinal uptake near the mid to distal inferolateral wall, which may cause artifact. There was a moderate sized area of moderately reduced uptake involving the base to mid inferior, base to mid inferoseptal, and base to mid inferolateral wall segments with severely reduced uptake in the mid to apical portions of the inferior, inferoseptal, and inferolateral grier. These defects were fixed without significant reversibility. There was also a small area of mildly reduced uptake involving the distal anteroseptum which was also fixed in post stress and rest imaging. There is no significant reversible defect to suggest ischemia. Ejection fraction: 33 % Wall motion: Global hypokinesis. No significant transient ischemic dilation. Impression: 1. Nondiagnostic exercise stress myocardial perfusion study as target heart rate was not attained. There were no ischemic changes noted at 59% MPHR. 2. Nondiagnostic exercise ECG as target heart rate was not attained. 3. Fixed defects involving the inferior, inferoseptal, and inferolateral wall segments may represent infarct versus attenuation artifact. 4. Moderately reduced LV systolic function with an EF of 33%. 5. Global hypokinesis. 6. Exercise terminated due to back and leg pain. No chest pain 7. Below average exercise tolerance.
--- NOTE | 2017-08-05 10:07 | Discharge Summary ---
Discharge Summary Date of Service Aug 05, 2017. Discharge Summary Admission Date: Aug 01, 2017 at 12:42 Discharge Date: Aug 04, 2017 Discharge Disposition: Home Principal Diagnosis: trial flutter upon admission, has converted to normal sinus rhythm Problems/Secondary Diagnoses: possible have sepsis upon admission, Uncontrolled diabetic cardiomyopathy: Chest discomfort had Nondiagnostic exercise stress myocardial perfusion study as target heart rate was not attained. Procedures: Nuclear stress test 1. Nondiagnostic exercise stress myocardial perfusion study as target heart rate was not attained. There were no ischemic changes noted at 59% MPHR. 2. Nondiagnostic exercise ECG as target heart rate was not attained. 3. Fixed defects involving the inferior, inferoseptal, and inferolateral wall segments may represent infarct versus attenuation artifact. 4. Moderately reduced LV systolic function with an EF of 33%. 5. Global hypokinesis. 6. Exercise terminated due to back and leg pain. No chest pain 7. Below average exercise tolerance. Consultations: Finisher Brush Medication Reconciliation New Medications: Glucose Blood (RideApartuch Verio Test Strip) 1 Kera Kera 1 BAG SQ BID for 30 Days Insulin Pen Needle (Bd Pen Needle/Katie/Ultra) 1 Mis Mis BOX DAILY, #100 Lancets (HPC Brasiltouch Delica Lancets) 1 Mis Mis BOX SQ BID, #1 Amoxicillin & Pot Clavulanate (Amoxicillin/Clavulanate P) 1 Tab Tab 875 MG PO BIDM for 4 Days, TAB Apixaban (Eliquis) 2.5 Mg Tab 5 MG PO BID for 30 Days, #120 TAB Azithromycin (Azithromycin) 250 Mg Tab 250 MG PO QAM for 2 Days, #2 TAB Carvedilol (Carvedilol) 12.5 Mg Tab 12.5 MG PO BID for 30 Days, #60 TAB Cholecalciferol (Vitamin D3) 1,000 Inter.unit Tab 2000 INTER.UNIT PO QAM for 30 Days, #6 TAB Insulin Glargine (Lantus Solostar) 100 Unit/Ml Inj 6 UNITS SC HS for 30 Days Nicotine (Nicoderm Cq 7 Mg Patch) 7 Mg/24 Hr Dis 1 PATCH TD QAM for 30 Days Continued Medications: Buprenorphine Hcl-Naloxone Hcl (Suboxone 8-2 Mg) 1 Sub Sub 8 MG TL BID PER GIRLFRIEND, TAKES 1 FILM TWICE A DAY Calcium (Calcium) Unknown Strength Tab 1 TAB PO DAILY Carisoprodol (Soma) 350 Mg Tab 350 MG PO TID, TAB Folic Acid (Folvite) 1 Mg Tab 1 MG PO DAILY, TAB OTC Omeprazole Magnesium (Prilosec Otc) 20 Mg Tab 20 MG PO DAILY, TAB Discontinued Medications: Cholecalciferol (Vitamin D3) Unknown Strength Tab 1 CAP PO DAILY for 90 Days, TAB 3 Refills Potassium (Potassium) Unknown Strength Tab 1 TAB PO DAILY OTC Discharge Exam Report occasionally have shortness of breath, especially when sitting up, no orthopnea, or dyspnea on exertion, today generally feeling better, more strength Review of Systems: Constitutional: No fever, No chills, No sweats, No weight loss, No weakness , No fatigue, No problem reported Eyes: No worsening of vision, No eye pain, No redness, No discharge, No diplopia, No problem reported ENT: No hearing loss, No unusual epistaxis, No nasal symptoms, No sore throat, No tinnitus, No dental problems, No trouble swallowing, No problem reported Respiratory: No cough, No sputum, No wheezing, No shortness of breath, No dyspnea on exertion, No dyspnea at rest, No hemoptysis, No problem reported Cardiovascular: No chest pain, No orthopnea, No PND, No edema, No claudication, No palpitations, No problem reported Abdomen: No pain, No nausea, No vomiting, No diarrhea, No constipation, No GI bleeding, No problem reported Musculoskeletal: No joint pain, No muscle pain, No swelling, No calf pain, No problem reported Genitourinary - Male: No hematuria, No dysuria, No urinary frequency, No urinary urgency, No urinary hesitancy, No urinary retention, No urinary incontinence, No penile discharge, No lesions, No impotence, No problem reported Neurologic: No memory loss, No paralysis, No weakness, No numbness/tingling , No vertigo, No balance problems, No problem reported Psychiatric: No depression symptoms, No anhedonism, No anxiety, No insomnia , No substance abuse, No problem reported Endocrine: No fatigue, No excessive thirst, No excessive urination, No problem reported Hematologic / Lymphatic: No abnormal bleeding/bruising, No clotting problems , No swollen lymph nodes, No night sweats, No problem reported Integumentary: No rash, No itch, No new/changing skin lesions, No color change, No bleeding, No problem reported Physical Exam: General Appearance: WD/WN, no apparent distress Eyes: normal inspection, PERRL, EOMI ENT: normal ENT inspection, hearing grossly normal, TMs normal Neck: supple, no adenopathy, thyroid normal Respiratory/Chest: chest non-tender, + decreased breath sounds Cardiovascular: regular rate, rhythm, no edema, no gallop, no JVD, no murmur Abdomen / GI: normal bowel sounds, no organomegaly, no pulsatile mass Extremities: normal inspection, no calf tenderness, normal capillary refill , no pedal edema, normal range of motion 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 flutter and also possible mild acute CHF a. flutter with RVR upon admission, has converted to normal sinus rhythm Continue current medicine of Coreg Checked TSH is normal, cardiac enzyme troponin negative 3 sets Confirm with lab tech, no "ventricle thrombosis" in repeated echo had nuclear stress test because of chest tight rule out ischemic heart disease: report in below: 1. Nondiagnostic exercise stress myocardial perfusion study as target heart rate was not attained. There were no ischemic changes noted at 59% MPHR. 2. Nondiagnostic exercise ECG as target heart rate was not attained. 3. Fixed defects involving the inferior, inferoseptal, and inferolateral wall segments may represent infarct versus attenuation artifact. 4. Moderately reduced LV systolic function with an EF of 33%. 5. Global hypokinesis. 6. Exercise terminated due to back and leg pain. No chest pain 7. Below average exercise tolerance. Discussed with lab tech, do not need cardiac cath for now, cardiology will follow-up as outpatient in 1-2 week, patient okay to be discharged home per lab tech possible acute on chronic and systolic CHF with cardiomyopathy upon admission, received IV lasix in the ER. Although patient has an elevated BNP and chest x-ray show some congestion , I don't believe have acute CHF going on now: patient no obvious fluid overload, oxygen level is in normal range, deny sob or dyspnea on exertion, continue beta marcel, no FLO inhibitor for now because blood pressure was in borderline low Possible sepsis upon admission with fever, altered mental status, cough/dyspnea Possible metabolic encephalopathy upon admission resolved, patient has been awake and alert and orientated 3, know current President's name So far no any obvious source of infection, no UTI, chest x-ray was not remarkable Blood cx's have been drawn. So far is negative 2 set 48 hours Checked rapid flu which was negative was on empiric rocephin 2 grams IV daily for 48 hours, was changed to oral antibiotic for the treatment of bronchitis with azithromycin and Augmentin because he was cough and because no evidence of other infection, Augmentin will be totally 7 days (includes Rocephin 2 days) and azithromycin will be totally 5 days Uncontrolled diabetic with an elevated blood glucose around 300, patient never diagnosed diabetic before, with his history of chronic pancreatitis, I feel oral glycemic medication possible will not help, have request diabetic education and nurse teaching for injection of insulin, have ordered RN to teach insulin injection ,was started no dose of Lantus by using glargine pain at 6 units and nighttime, patient has PCP Dr. Traylor in [place], recommended patient to follow-up with him for further follow-up, possible need to referral to cocktail lounge manager to further evaluation of type I or type II diabetic, and need to have more education of doing insulin sliding scale, I will also ordered BD Katie needle to home when he is using Lantus pen at home CF carrier vs cystic fibrosis , advice to f/u with pcp or specialist, but will be sensitive for possible severe infection and subseptale to infection because of this medical conditions chronic pain syndrome - continue suboxone 8mg BID per outpatient dosing. DVT prophylaxis is covered We'll discharge home today , more instructions from cardiology will be delivered by lab tech , discussed with lab tech Instructions / Follow-Up you have Atrial flutter upon admission, has converted to normal sinus rhythm you need to follow up with pcp for possible need of water pill for your heart condition you possible have sepsis upon admission, so far no any obvious source of infection, we are continue antibiotics for bronchitis with azithromycin and Augmentin for now you have Uncontrolled diabetic , you need to follow [facility] for the Diagnosis of type i or type 2 diabetics, and was started love of Lantus by using glargine pen at 6 units and nighttime, need to follow up with PCP Dr. traylor in [place] for further optimize the care plan of diabetics, such as doing ISS etc., you have possible CF carrier vs cystic fibrosis , you need to follow up with pcp or specialist - you need to follow up with your primary care physician as we help scheduled for you - take medication as instructed, never overdose or any misuse, or take with alcohol, because misuse of medicine may cause organ damage or , call your primary care physician if have questions of medicaitons. - call your primary care physician OR go to local emergency room if has any fever/chill, chest pain, shortness of breathing, nausea/vomiting/abdominal pain , facial droop/slurry speech/local weakness, or if has any questions. - fall precaution - diet as instructed - you should understand that it is important to follow up the above instruction , and "not following the above instruction" may cause delayed or missed care of your medical conditions which may cause permanent organ damage and even . Total Time Spent: Greater than 30 minutes This includes examination of the patient, discharge planning, medication reconciliation, and communication with other providers. Discharge Instructions Please refer to the electronic Patient Visit Report (Discharge Instructions) for additional information. Additional Copies To REUBEN TRAYLOR MD; Trevon Arellano M.D.
[2017-08-05 10:31] VITALS: BP 115/69; PULSE 73; TEMP 36.6; O2SAT 95
[2017-08-05 10:49] VITALS: Ht 172.7 cm; Wt 70.3 kg
[2017-08-05 11:15] VITALS: BP 113/81; PULSE 73; TEMP 37.1; O2SAT 96
== END 2017-08-05 12:05 | disposition home or self-care (01) | DRG 871 ==
LOC: C.EDB 09:51 → C.2T 12:42 → ENRESERV 13:02 → C.2T 08-02 11:42
PROVIDERS: ADMIT Internal Medicine; ATTEND Hospitalist
DX: A41.9 Sepsis, unspecified organism (principal); G93.41 Metabolic encephalopathy; I50.33 Acute on chronic diastolic (congestive) heart failure; I48.92 Unspecified atrial flutter; I42.9 Cardiomyopathy, unspecified; E84.9 Cystic fibrosis, unspecified; G89.4 Chronic pain syndrome; D64.9 Anemia, unspecified; I48.91 Unspecified atrial fibrillation; R54 Age-related physical debility; E11.65 Type 2 diabetes mellitus with hyperglycemia; Z79.899 Other long term (current) drug therapy; J45.909 Unspecified asthma, uncomplicated; F17.200 Nicotine dependence, unspecified, uncomplicated